=== PATIENT | male | born 1950 | race African-American/Black ===

== ENCOUNTER 2019-02-18 06:29 | Day surgery (SDC) | payer OTHER ==
--- OUTSIDE RECORDS SUMMARY | 2019-02-18 06:36 | XMS REPORT | Continuity of Care Document ---
:1950 Author Organization [facility] Roni Information [facility] Care Team Providers Name Role Phone [facility] Information Exchange Unavailable Unavailable Problems Problem Status Onset Classification Date Comments Source Date Reported PELVIC INJURY Active 08/03/19 [place] [id number] Medical Center URINARY AND Active 08/03/19 [facility] PELVIC ORGAN 15 Medical NJURY, ICD 867. Center Discharge 07/04/19 07/06/2014 [facility] Diagnosis: 15 Medical Complication of Center Borja catheter Discharge 07/04/19 07/06/2014 [facility] Diagnosis: UTI [address] [place] [address] Center Enterobacter1, 2 Active 07/04/19 Problem 09/20/2014 1urine 07/04/14 [place] [address] 2Problem added by Discern Expert. Medical Center Discharge 06/13/19 06/16/2014 [facility] Diagnosis: 15 Medical Urinary Center retention BEDDED Active 05/08/20 [facility] OUTPATIENT/SUPRA Medical PUBIC CATH EVAL Center W Discharge 05/07/20 05/10/2014 [facility] Diagnosis: 14 Medical Encounter for Center suprapubic catheter care LEAKING URINE Active 05/07/20 [facility] BAG 14 Medical Center OTHER Active 04/14/[address] FALL Active 04/14/[address] URETHRAL INJURY Active 04/14/[address] BLADDER PAIN Active 04/14/[address] EPHORIA DUE TO Active 04/20/20 [facility] INSUFFICIENT 12 [place] DRAINAGE CABG x 3 - Active 12/05/19 Problem 09/20/2014 [facility] Coronary artery 10 Medical bypass grafts x Center, 3 OPID [place] HTN Active 12/05/19 Problem 09/20/2014 [facility] [Hypertension] Medical [place], ALENA Tamayo Hyperglycemia Active 12/05/19 Problem 09/20/2014 [place] [address] Medical Center, ALENA Tam[place]o,[facility] Malnutrition Active 12/05/19 Problem 09/20/2014 [facility] NOS(Probable 10 Medical Diagnosis) Center, ALENA [place] CABG x 3 - Active 12/05/19 Problem 05/12/2012 [facility] Coronary artery 10 [place] bypass grafts x 3 HTN Active 12/05/19 Problem 05/12/2012 [facility] [Hypertension] [address] [place] [address] Malnutrition NOS Active 12/05/19 Problem 05/12/2012 [place] [address] City Anxiety Active Problem 09/20/2014 [facility], OPID [facility] [place] BPH Active Problem 09/20/2014 [facility], OPID [facility] Bypass Active Problem 09/20/2014 [facility], OPID Roni Chest pain Active Problem 09/20/2014 [facility], OPID R[place] Diabetes Resolved Problem 09/20/2014 [facility] mellitus [facility], ALENA Tamayo Epiphora due to Active Problem 09/20/2014 [facility] Medical drainage Center, OPID Roni Glaucoma Active Problem 09/20/2014 [facility], OPID Roni Hypertension Active Problem 09/20/2014 [facility], OPITrue [facility] Sleep Pain Active Problem 09/20/2014 [facility], OPITrue [place] Anxiety Active Problem 05/12/2012 [facility] Bypass Active Problem 05/12/2012 [facility] Chest pain Active Problem 05/12/2012 [facility] Epiphora due to Active Problem 05/12/2012 [facility] drainage Pain Active Problem 05/12/2012 [facility] Coronary artery Active Problem 09/20/2014 [facility] Suprapubic Active Problem 09/20/2014 [facility] urinary catheter Medical in situ Center OTHER GENERAL Active [facility] PELVIC ORGAN INJ Active [facility] [place] Medications Medication Details Route Status Patient Ordering Order Source Instructions Provider Date Pneumovax 23 0.5 mL, Route: Inactive 09/18/ [facility] IM, Drug Form: 2015 Medical INJ, Daily, Center Start date: 09/18/14 11:00:00, Duration: 1 doses or times, Stop date: 09/18/14 11:00:00Notes: (Same as: Pneumovax 23) Refrigerate Levofloxacin 500 mg=1 tab, Active 09/18/ [place] 500 MG Oral PO, Q24H, # 7 2015 Medical Tablet tab, 0 Center [Levaquin] Refill(s) tramadol 100 mg=2 tab, Active 09/18/ [place] hydrochloride PO, Q6H, PRN 2015 Medical 50 MG Oral Pain Score Center Tablet 4-6, # 45 tab, 0 Refill(s) Docusate Sodium 100 mg=1 cap, Active [place] 100 MG Oral PO, BID, # 40 2014 Medical Capsule cap, 0 [place] [Colace] Refill(s) Bisacodyl 10 mg, 1 supp, Inactive Route: [place], 2014 Medical Drug form: [place] SUPP, ONCE, Dosing Weight 109.091, kg, PRN Constipation, Priority: NOW, Start date: 09/17/14 11:20:00Notes: (Same As: Dulcolax, Bisco-Lax) Losartan 100 mg, 1 tab, No Longer Route: PO, Active 2014 Medical Drug form: [place] TAB, Daily, Dosing Weight 109.091, kg, Start date: 09/16/14 9:00:00, Duration: 30 day, Stop date: 10/15/14 9:00:00Notes: (Same as: Jeffar) Avodart 0.5 mg, 1 cap, No Longer Route: PO, Active 2014 Medical Drug form: [place] CAP, Daily, Dosing Weight 109.091, kg, Start date: 09/16/14 9:00:00, Duration: 30 day, Stop date: 10/15/14 9:00:00Notes: Non-Formulary Drug. (Same As: Avodart) (Do Not Crush) Amlodipine 10 mg, 1 tab, No Longer Route: PO, Active 2014 Medical Drug form: [place] TAB, Daily, Dosing Weight 109.091, kg, Start date: 09/16/14 9:00:00, Duration: 30 day, Stop date: 10/15/14 9:00:00Notes: (Same as: Norvasc) Docusate Sodium 100 mg, 1 cap, No Longer [place] 100 MG Oral Route: PO, Active 2014 Medical Capsule Drug form: [place] [Colace] CAP, BID, Dosing Weight 109.091, kg, Start date: 09/16/14 9:00:00, Duration: 30 day, Stop date: 10/15/14 17:00:00Notes: (Same as: Colace) (Do Not Crush) pneumococcal 0.5 mL, Route: No Longer [place] capsular IM, Drug Form: Active 2014 Medical polysaccharide INJ, Daily, [place] type 1 vaccine Start date: / pneumococcal 09/16/14 capsular 9:00:00, polysaccharide Duration: 1 type 10A doses or vaccine / times, Stop pneumococcal date: 09/16/14 capsular 9:00:00Notes: polysaccharide (Same as: type 11A Pneumovax 23) vaccine / Refrigerate pneumococcal capsular polysaccharide type 12F vaccine / pneumococcal capsular polysacchar BYSTOLIC 10 MG BYSTOLIC 10 MG No Longer [place] TABLET TABLET, 20 mg, Active 2014 Medical Drug form: [place] MISC, Route: PO, Daily, 09/16/14 9:00:00, Duration: 30 day, Stop date: 10/15/14 9:00:00 Bystolic 20 mg, 4 tab, No Longer [place] Route: PO, Active 2014 Medical Drug form: Center TAB, Daily, Dosing Weight 109.091, kg, Start date: 09/16/14 9:00:00, Duration: 30 day, Stop date: 10/15/14 9:00:00Notes: (same as: Bystolic) heparin 5,000 unit, 1 No Longer [place] mL, Route: Active 2014 Medical SUB-Q, Drug Center form: INJ, Q8H, Dosing Weight 109.091, kg, Start date: 09/16/14 8:00:00, Duration: 30 day, Stop date: 10/16/14 0:00:00Notes: porcine heparin D5W 1/2NS 1,000 1,000 mL, No Longer [place] mL Rate: 75 Active 2014 Medical ml/hr, Infuse [place] over: 13.3 hr, Route: IV, Dosing Weight 109.091 kg, Total Volume: 1,000, Start date: 09/16/14 7:37:00, Duration: 30 day, Stop date: 10/16/14 7:36:00 latanoprost 1 drp, Route: No Longer [place] 0.05 MG/ML OPTH, Bedtime, Active 2014 Medical Ophthalmic Drug form: [place] Solution SOLN, Start date: 09/15/14 21:00:00, Stop date: 10/14/14 21:00:00Notes: Keep refrigerated. (Same as:Xalatan) Crestor 10 mg, 1 tab, No Longer [place] Route: PO, Active 2014 Medical Drug form: [place] TAB, Bedtime, Dosing Weight 109.091, kg, Start date: 09/15/14 21:00:00, Stop date: 10/14/14 21:00:00Notes: (Same As: Crestor) Brimonidine 1 drp, Route: No Longer [place] tartrate 1 OPTH, Q8H, Active 2014 Medical MG/ML Drug form: [place] Ophthalmic SOLN, Start Solution date: 09/15/14 [Alphagan] 16:00:00, Stop date: 10/15/14 8:00:00Notes: (Same as: Alphagan-P) Ancef + Sodium 2 gm, Route: No Longer [place] Chloride 0.9% IVPB, Drug Active 2014 Medical IV 100 mL form: PDR/INJ, [place] ABXQ8H, Dosing Weight 109.091, kg, Start date: 09/15/14 15:00:00, Duration: 3 doses or times, Stop date: 09/16/14 12:00:00Notes: (Same As: [place] Kefzol) MEDICATION WASTE Product Size: 1000 mg Product Wasted: ___ mg Ondansetron 4 mg, 2 mL, Inactive [place] Route: IVP, 2014 Medical Drug form: [place] INJ, ONCE, Dosing Weight 109.091, kg, PRN Nausea & Vomiting, Start date: 09/15/14 14:37:00Notes: (Same as: Zofran) MEDICATION WASTE Product Size: 4 mg Product Wasted: ___ mg Naloxone 0.04 mg, 0.1 Inactive [place] mL, Route: 2014 Medical IVP, Drug Center form: INJ, Q2MIN, Dosing Weight 109.091, kg, PRN Narcotic Reversal, Start date: 09/15/14 14:37:00, Duration: 8 doses or times, Stop date: 09/16/14 0:00:00Notes: (Same as: Narcan) Hydromorphone 0.5 mg, 0.25 Inactive [place] mL, Route: 2014 Medical IVP, Drug Center form: INJ, Q5Min, Dosing Weight 109.091, kg, PRN Pain Score 7-10, Start date: 09/15/14 14:37:00, Duration: 4 doses or times, Stop date: 09/16/14 0:00:00Notes: Same as: Dilaudid Flumazenil 0.2 mg, 2 mL, Inactive [place] Route: IVP, 2014 Medical Drug form: Center INJ, PRN, Dosing Weight 109.091, kg, PRN Benzodiazepine Reversal, Initial dose, Start date: 09/15/14 14:37:00, Duration: 30 day, Stop date: 10/15/14 14:36:00Notes: (Same as: Romazicon) Morphine 2 mg, 1 mL, No Longer [place] Route: IVP, Active 2014 Medical Drug form: Center INJ, Q2H, Dosing Weight 109.091, kg, PRN Pain Score 7-10, Start date: 09/15/14 14:15:00, Duration: 30 day, Stop date: 10/15/14 14:14:00Notes: (Same as:MORPhine Sulfate) Hydralazine 10 mg, 0.5 mL, No Longer [place] Route: IVP, Active 2014 Medical Drug form: Center INJ, Q6H, Dosing Weight 109.091, kg, PRN Hypertension, Start date: 09/15/14 14:15:00, Duration: 30 day, Stop date: 10/15/14 14:14:00, SBP > 160Notes: (Same as: Apresoline) Push over 5 minutes Zofran 4 mg, 2 mL, No Longer [facility] Route: IV, Active 2014 Medical Drug form: Center INJ, Q8H, Dosing Weight 109.091, kg, PRN Nausea, Start date: 09/15/14 14:15:00, Duration: 30 day, Stop date: 10/15/14 14:14:00Notes: (Same as: Zofran) MEDICATION WASTE Product Size: 4 mg Product Wasted: _0__ mg Tylenol 650 mg, 2 tab, No Longer [place] Route: PO, Active 2014 Medical Drug form: Center TAB, Q6H, Dosing Weight 109.091, kg, PRN Pain Score 1-3, Start date: 09/15/14 14:15:00, Duration: 30 day, Stop date: 10/15/14 14:14:00Notes: Do not exceed 4 gm/day. (Same as: Tylenol) tramadol 100 mg, 2 tab, No Longer [place] hydrochloride Route: PO, Active 2014 Medical 50 MG Oral Drug form: Center Tablet TAB, Q6H, Dosing Weight 109.091, kg, PRN Pain Score 4-6, Start date: 09/15/14 14:14:00, Duration: 30 day, Stop date: 10/15/14 14:13:00Notes: Not to exceed 400mg/day. (Same As: Ultram) Insulin regular 4 unit, 0.04 No Longer [place] mL, Route: Active 2014 Medical SUB-Q, Drug Center form: SOLN, TID-Before Meals, Dosing Weight 109.091, kg, PRN Blood Glucose Results, Start date: 09/15/14 14:14:00, Duration: 30 day, Stop date: 10/15/14 14:13:00Notes: (Same as: Humulin R) Roll in palms of hands gently; Do not shake vigorously. "single patient use only" (Restricted to patients requiring a dose > 60 units) Stable for 28 days at room temperature Expires in days from Date Dextrose 50% 12.5 gm, 25 No Longer [place] Syringe mL, Route: Active 2014 Medical IVP, Drug Center Form: INJ, Dosing Weight 109.091, kg, PRN, PRN Blood Glucose Results, Start date: 09/15/14 14:14:00, Duration: 30 day, Stop date: 10/15/14 14:13:00 Glucagon 1 mg, Route: No Longer [place] IM, Drug form: Active 2014 Medical PDR/INJ, PRN, Center Dosing Weight 109.091, kg, PRN Blood Glucose Results, Start date: 09/15/14 14:14:00, Duration: 30 day, Stop date: 10/15/14 14:13:00 D5NS 1,000 mL 1,000 mL, No Longer [place] Rate: 100 Active 2014 Medical ml/hr, Infuse Center over: 10 hr, Route: IV, Dosing Weight 109.091 kg, Total Volume: 1,000, Start date: 09/15/14 14:11:00, Duration: 30 day, Stop date: 10/15/14 14:10:00 Gentamicin 480 mg, 12 mL, Inactive [place] Sulfate (SHELTER) Route: IVPB, 2014 Medical 10 MG/ML ONCE, Dosing Center Injectable Weight Solution 109.091, kg, Start date: 09/15/14 11:51:00, Stop date: 09/15/14 11:51:00, (adjust the dose for patients with renal insufficiency) Special Instructions: (adjust the dose for patients with renal insufficiency) Notes: (Same as Garamycin) ceFAZolin 2 gm, 50 mL, Inactive [place] Route: IVPB, 2014 Medical Drug form: Center INJ, PRE OP, Start date: 09/15/14 0:00:00, Duration: 1 doses or times, Stop date: 09/16/14 0:00:00 latanoprost 1 drp, OPTH, On Hold [place] 0.05 MG/ML Bedtime, both 2014 Medical Ophthalmic eyes, # 3 ml, Center Solution 0 Refill(s)Speci al Instructions: both eyes Brimonidine 1 drp, OPTH, On Hold [place] tartrate 1 Q8H, left ey, 2014 Medical MG/ML # 10 ml, 0 Center Ophthalmic Refill(s)Speci Solution al [Alphagan] Instructions: left ey Levofloxacin 500 mg=1 tab, Active [place] 500 MG Oral PO, Q24H, # 14 2015 Medical Tablet tab, 0 Center [Levaquin] Refill(s) Acetaminophen 1 tab, Route: Inactive [place] 325 MG / PO, Drug Form: 2014 Medical Hydrocodone TAB, Dosing Center Bitartrate 10 Weight 110, MG Oral Tablet kg, ONCE, [[place] 10/325] STAT, Start date: 07/04/14 7:54:00, Stop date: 07/04/14 7:54:00 Dilaudid 0.5 mg, Route: Inactive [facility] IVP, ONCE, 2014 Medical Dosing Weight Center 110, kg, Priority: STAT, Start date: 07/04/14 7:07:00, Stop date: 07/04/14 7:07:00 Zofran 4 mg, Route: Inactive [facility] IVP, Drug 2014 Medical form: INJ, Center ONCE, Dosing Weight 110, kg, Priority: STAT, Start date: 06/13/14 19:57:00, Stop date: 06/13/14 19:57:00 Morphine 4 mg, Route: Inactive [facility] IVP, Drug 2014 Medical form: INJ, Center ONCE, Dosing Weight 110, kg, Priority: STAT, Start date: 06/13/14 19:57:00, Stop date: 06/13/14 19:57:00 Acetaminophen 1 tab, Route: Inactive [place] 325 MG / PO, Drug Form: 2014 Medical Hydrocodone TAB, Dosing Center Bitartrate 10 Weight 110, MG Oral Tablet kg, ONCE, [[place] 10/325] STAT, Start date: 05/07/14 20:54:00, Stop date: 05/07/14 20:54:00 Docusate Sodium 100 mg=1 cap, Active [place] 100 MG Oral PO, BID, 2013 Medical Capsule Constipation, Center [Colace] # 20 cap, 0 Refill(s) Acetaminophen 1 tab, PO, Active [place] 300 MG / Q4H, Pain 2014 Medical Codeine Score 4-6, # Center Phosphate 30 MG 30 tab, 0 Oral Tablet Refill(s) hyoscyamine 0.125 mg=1 Active [place] 0.125 mg tab, SL, Q4H, 2014 Medical sublingual Bladder Spasm, Center tablet # 30 tab, 0 Refill(s) Crestor 10 mg, 1 tab, No Longer [place] Route: PO, Active 2013 Medical Drug form: Center TAB, Bedtime, Dosing Weight 116.364, kg, Start date: 04/15/14 21:00:00, Duration: 30 day, Stop date: 05/14/14 21:00:00Notes: (Same As: Crestor) Ubiquinone 100 mg, PO, Active [place] TID, 0 2013 Medical Refill(s) Center Metformin 500 mg, PO, Active [place] BID, 0 2013 Medical Refill(s) Center aspirin 81 mg, PO, Active [place] Daily, 0 2013 Medical Refill(s) Center nebivolol 20 MG 20 mg=1 tab, Active [facility] Oral Tablet PO, Daily, 0 2013 Medical [Bystolic] Refill(s) Center Rosuvastatin 10 mg=1 tab, No Longer [facility] calcium 10 MG PO, Daily, 0 Active 2013 Medical Oral Tablet Refill(s) Center [Crestor] Amlodipine 5 mg, PO, Active [place] Daily, 0 2013 Medical Refill(s) Center glimepiride 1 mg, PO, Active [facility] Daily, 0 2013 Medical Refill(s) Center Flomax 0.4 mg, 1 cap, No Longer [facility] Route: PO, Active 2013 Medical Drug form: [place] CAP, Daily, Dosing Weight 116.364, kg, Start date: 04/15/14 9:00:00, Duration: 30 day, Stop date: 05/14/14 9:00:00Notes: (Same As: Flomax) "Do Not Crush" Bystolic 5 mg, 1 tab, No Longer [facility] Route: PO, Active 2013 Medical Drug form: [place] TAB, Daily, Dosing Weight 116.364, kg, Start date: 04/15/14 9:00:00, Duration: 30 day, Stop date: 05/14/14 9:00:00Notes: (same as: Bystolic) Apriso 1.5 gm, 3 cap, No Longer [facility] Route: PO, Active 2013 Medical Drug form: [place] ERCAP, QAM, Dosing Weight 116.364, kg, Start date: 04/15/14 9:00:00, Duration: 30 day, Stop date: 05/14/14 9:00:00 Losartan 100 mg, 2 tab, No Longer [facility] Route: PO, Active 2013 Medical Drug form: [place] TAB, Daily, Dosing Weight 116.364, kg, Start date: 04/15/14 9:00:00, Duration: 30 day, Stop date: 05/14/14 9:00:00Notes: (Same as: Cozaar) Avodart 0.5 mg, 1 cap, No Longer [place] Route: PO, Active 2013 Medical Drug form: [place] CAP, Daily, Dosing Weight 116.364, kg, Start date: 04/15/14 9:00:00, Duration: 30 day, Stop date: 05/14/14 9:00:00Notes: Non-Formulary Drug. (Same As: Avodart) (Do Not Crush) Famotidine 20 mg, 1 tab, No Longer [place] Route: PO, Active 2013 Medical Drug form: [place] TAB, Q12H, Dosing Weight 116.364, kg, Start date: 04/15/14 9:00:00, Duration: 30 day, Stop date: 05/14/14 21:00:00Notes: (Same as: Pepcid) Sodium Chloride 1,000 mL, Inactive [place] 0.154 MEQ/ML 1,000 ml/hr, 2013 Medical Injectable Infuse Over: 1 Center Solution hr, Route: IV, 1,000, Drug form: INJ, ONCE, Priority: STAT, Dosing Weight 116.364 kg, Start date: 04/15/14 8:19:00, Duration: 1 doses or times, Stop date: 04/15/14 8:19:00 Lovenox 40 mg, 0.4 mL, No Longer [place] Route: SUB-Q, Active 2013 Medical Drug form: [place] INJ, Daily, Dosing Weight 116.364, kg, Priority: STAT, Start date: 04/14/14 22:01:00, Duration: 30 day, Stop date: 05/14/14 9:00:00Notes: (Same as: Lovenox) Levsin 0.125 mg, 1 No Longer [place] tab, Route: Active 2013 Medical SL, Drug form: Center TAB, Q4H, Dosing Weight 116.364, kg, PRN Bladder Spasm, Start date: 04/14/14 22:00:00, Duration: 30 day, Stop date: 05/14/14 21:59:00Notes: (Same as: Levsin) Take 30 min before meal Cipro 400 mg, 200 No Longer [place] mL, Route: Active 2013 [facility] IVPB, Drug Center form: INJ, ONCE, Dosing Weight 116.364, kg, Priority: STAT, Start date: 04/14/14 22:00:00, Stop date: 04/14/14 22:00:00Notes: Do not refrigerate Insulin, 2 unit, 0.02 No Longer [place] Regular, Pork mL, Route: Active 2013 [facility] SUB-Q, Drug Center form: SOLN, TID-Before Meals, Dosing Weight 116.364, kg, PRN Blood Glucose Results, Start date: 04/14/14 21:59:00, Duration: 30 day, Stop date: 05/14/14 21:58:00Notes: (Same as: Humulin R) Roll in palms of hands gently; Do not shake vigorously. "single patient use only" (Restricted to patients requiring a dose > 60 units) Stable for 28 days at room temperature Expires in days from Date Dextrose 50% 12.5 gm, 25 No Longer [place] Syringe mL, Route: Active 2013 [facility] IVP, Drug Center Form: INJ, Dosing Weight 116.364, kg, PRN, PRN Blood Glucose Results, Start date: 04/14/14 21:59:00, Duration: 30 day, Stop date: 05/14/14 21:58:00 Glucagon 1 mg, Route: No Longer [place] IM, Drug form: Active 2013 Medical PDR/INJ, PRN, Center Dosing Weight 116.364, kg, PRN Blood Glucose Results, Start date: 04/14/14 21:59:00, Duration: 30 day, Stop date: 05/14/14 21:58:00 Calcium 1,000 mL, No Longer [place] Chloride 0.0014 Rate: 100 Active 2013 Medical MEQ/ML / ml/hr, Infuse Center Potassium over: 10 hr, Chloride 0.004 Route: IV, MEQ/ML / Sodium Dosing Weight Chloride 0.103 116.364 kg, MEQ/ML / Sodium Total Volume: Lactate 0.028 1,000, Start MEQ/ML date: 04/14/14 Injectable 21:59:00, Solution Duration: 30 day, Stop date: 05/14/14 21:58:00 acetaminophen-c 1 tab, Route: No Longer [facility] odeine #3 PO, Drug Form: Active 2013 Medical TAB, Dosing Center Weight 116.364, kg, Q4H, PRN Pain Score 4-6, Start date: 04/14/14 21:59:00, Duration: 30 day, Stop date: 05/14/14 21:58:00Notes: Do not exceed 4gm/day of acetaminophen. (Same as: Tylenol with Codeine # 3) Hydromorphone 0.3 mg, 0.15 No Longer [facility] mL, Route: Active 2013 Medical IVP, Drug Center form: INJ, Q3H, Dosing Weight 116.364, kg, PRN Pain Score 4-6, Start date: 04/14/14 21:59:00, Duration: 30 day, Stop date: 05/14/14 21:58:00Notes: Same as: Dilaudid Lidocaine 1 inj, Route: Inactive [facility] SUB-Q, ONCE, 2013 Medical Dosing Weight Center 116.364, kg, Priority: STAT, Start date: 04/14/14 20:50:00, Stop date: 04/14/14 20:50:00 Dilaudid 1 mg, 0.5 mL, Inactive [facility] Route: IVP, 2013 Medical Drug form: Center INJ, ONCE, Dosing Weight 116.364, kg, Priority: STAT, Start date: 04/14/14 20:50:00, Stop date: 04/14/14 20:50:00Notes: Same as: Dilaudid Morphine 4 mg, Route: Inactive [facility] IVP, Drug 2013 Medical form: INJ, Center ONCE, Dosing Weight 116.364, kg, Priority: STAT, Start date: 04/14/14 19:00:00, Stop date: 04/14/14 19:00:00 Saline Flush 10 mL, Route: No Longer [facility] 0.9% IVP, Drug Active 2013 Medical Form: INJ, Center Dosing Weight 116.364, kg, PRN, PRN Line Flush, Start date: 04/14/14 18:49:00, Duration: 30 day, Stop date: 05/14/14 18:48:00Notes: (Same as: BD Posiflush) cefazolin 2 gm, Route: IVPB No Longer [place] IVPB, ONCE, [address] Weight [facility] 115.909, kg, Start date: 05/10/12 11:08:00, Duration: 1 doses or times, Stop date: 05/10/12 11:08:00 flumazenil 0.2 mg, 2 mL, IVP No Longer [place] Route: IVP, [address] Drug form: [facility] INJ, PRN, Dosing Weight 115.909, kg, PRN Benzodiazepine Reversal, Initial dose, Start date: 05/10/12 10:58:00, Duration: 30 day, Stop date: 06/09/12 10:57:00 naloxone 0.04 mg, 0.1 IVP No Longer [place] 05/10[facility] mL, Route: [address] IVP, Drug [facility] form: INJ, Q2MIN, Dosing Weight 115.909, kg, PRN Narcotic Reversal, Start date: 05/10/12 10:58:00, Duration: 8 doses or times, Stop date: Limited # of times ondansetron 4 mg, 2 mL, IVP No Longer [place] Route: IVP, [address] Drug form: [facility] INJ, ONCE, Dosing Weight 115.909, kg, PRN Nausea & Vomiting, Start date: 05/10/12 10:58:00 promethazine + 6.25 mg, 0.25 IVPB No Longer [place] Sodium Chloride mL, Route: [address] 0.9% IV 50 mL IVPB, ONCE, [facility] Dosing Weight 115.909, kg, PRN Nausea & Vomiting, Start date: 05/10/12 10:58:00 enalapril 0.625 mg, 0.5 IVP No Longer [place] 05/10[facility] mL, Route: [address] IVP, Drug [facility] form: INJ, Q5Min, Dosing Weight 115.909, kg, PRN Elevated BP, Start date: 05/10/12 10:58:00, Duration: 4 doses or times, Stop date: Limited # of times meperidine 12.5 mg, 0.25 IVP No Longer [place] mL, Route: Active 2011 [facility] IVP, Drug [facility] form: INJ, Q30Min, Dosing Weight 115.909, kg, PRN Other -See Comment, For shivering, Start date: 05/10/12 10:58:00, Duration: 2 doses or times, Stop date: Limited # of times hydromorphone 0.5 mg, 0.25 IVP No Longer [place] mL, Route: Active 2011 [facility] IVP, Drug [facility] form: INJ, Q15Min, Dosing Weight 115.909, kg, PRN Other -See Comment, Start date: 05/10/12 10:58:00, Duration: 5 doses or times, Stop date: Limited # of times, pain score 4-10 morphine 2 mg, 1 mL, IVP No Longer [place] Sulfate Route: IVP, [facility] 2011 [facility] Drug form: [place] INJ, Q5Min, Dosing Weight 115.909, kg, PRN Other -See Comment, Start date: 05/10/12 10:58:00, Duration: 5 doses or times, Stop date: Limited # of times, pain score 4-10 albuterol 4.98 mg, 6 mL, NEB No Longer [place] 0.083% Route: NEB, Active 2011 [facility] inhalation Drug form: [facility] solution SOLN, RQ8H, Dosing Weight 115.909, kg, PRN Wheezing, Start date: 05/10/12 10:58:00, Duration: 30 day, Stop date: 06/09/12 10:57:00 lidocaine 1% 0.5 mL, Route: INTRADERM No Longer [facility] INTRADERM, [address] Drug Form: [place] INJ, Dosing Weight 115.909, kg, ONCALL, Start date: 05/10/12 10:00:00, Duration: 1 doses or times Apriso 0.375 g 1.5 gm, 4 cap, PO [facility] oral capsule, PO, QAM, 120 2011 [facility] extended cap, City release Substitution Allowed, ERCAP losartan 100 mg 100 mg, 1 tab, PO [facility] oral tablet PO, Daily, 30 2011 [facility] tab, City Substitution Allowed, TAB Lactated 1,000 mL, IV No Longer [facility] Ringers Rate: 25 Active 2011 [facility] Injection IV ml/hr, Infuse [place] 1,000 mL over: 40 hr, Route: IV, kg, Total Volume: 1,000, Start date: 05/10/12 9:14:00, Duration: 30 day, Stop date: 06/09/12 9:13:00 BLUE PILLS BLUE PILLS, 4 PO No Longer tabs, PO, Active 2011 [facility] Daily, City Substitution Allowed BLOOD PRESSURE BLOOD PRESSURE PO No Longer PILL PILL, 1 tab, Active 2011 [facility] PO, Daily, City Substitution Allowed Flomax 0.4 mg 0.4 mg, 1 cap, PO Active oral capsule PO, Daily, 2011 [facility] cap, City Substitution Allowed, CAP Avodart 0.5 mg 0.5 mg, 1 cap, PO Active oral capsule PO, Daily, 2011 [facility] cap, City Substitution Allowed, CAP aspirin 325 mg 325 mg, 1 tab, PO No Longer tablet PO, Daily, Active 2011 [facility] City Allowed Crestor 10 mg 10 mg, 1 tab, PO Active oral tablet PO, Daily, 2011 [facility] tab, City Substitution Allowed, TAB Bystolic 5 mg 5 mg, 1 tab, PO Active oral tablet PO, Daily, 2011 [facility] tab, City Substitution Allowed, TAB Allergies, Adverse Reactions, Alerts No Known Medication Allergies Immunizations Immunization Date Site Status Last Updated Comments Source Given pneumococcal Right completed [facility] 23-valent vaccine [address] [place] [address] pneumococcal Not Given Toño [facility] 23-valent vaccine [address] [place] [address] Results Order Name Results Value Reference Date Interpretation Comments Source Range HEMATOLOGY Monocytes # 0.8 0.0 - 0.8 09/18 [facility] HEMATOLOGY Eosinophils # 0.2 0.0 - 0.5 09/18 [facility] HEMATOLOGY Microcyte 2+ None Seen 09/18 [facility] *ABN* /2014 [facility] (09/18/14 3:50 AM) [place] HEMATOLOGY Segs 51.7 45.0 - 09/18 [facility] 75.0 [facility] HEMATOLOGY Lymphocytes 31.6 20.0 - 09/18 [place] 40.0 [facility] HEMATOLOGY Eosinophils 3.5 0.0 - 4.0 09/18 [facility] HEMATOLOGY Monocytes 12.4 2.0 - 12.0 09/18 2014 [facility] HEMATOLOGY Lymphocytes # 2.0 1.0 - 5.5 09/18 [facility] HEMATOLOGY Basophils 0.8 0.0 - 1.0 09/18 [facility] HEMATOLOGY Segs-Bands # 3.3 1.5 - 8.1 09/18 [facility] HEMATOLOGY Hct 36.1 42.0 - 09/18 [place] 54.0 /2014 [facility] HEMATOLOGY RBC 5.00 4.70 - 09/18 [place] 6.10 /2014 [facility] HEMATOLOGY Hgb 12.1 14.0 - 09/18 18.0 [facility] HEMATOLOGY WBC 6.4 3.7 - 10.4 09/18 [facility] HEMATOLOGY RDW 14.7 11.5 - 09/18 14.5 [facility] HEMATOLOGY Platelet 163 133 - 450 09/18 [facility] HEMATOLOGY MPV 10.1 7.4 - 10.4 09/18 [facility] HEMATOLOGY MCHC 33.6 32.0 - 09/18 [place] 36.0 [facility] HEMATOLOGY MCV 72.3 80.0 - 09/18 [place] 94.0 [facility] HEMATOLOGY MCH 24.3 27.0 - 09/18 [place] 31.0 [facility] HEMATOLOGY PTT 31.7 22.9 - 09/18 <sup>7</sup>I 35.8 nterpretive Medical Data: [facility] Therapeutic Range: 57 - 92 [place] ELECTROLYTES AGAP 13.1 10.0 - 09/17 [place] 20.0 [facility] ELECTROLYTES eGFR 80 09/17 <sup>1</sup>R esult Medical Comment: The Center eGFR is calculated using the CKD-EPI formula. In most young, healthy individuals the eGFR will be >90 mL/min/1.73m2 . The eGFR declines with age. An eGFR of 60-89 may be normal in some populations, particularly the elderly, for whom the CKD-EPI formula has not been extensively validated. Use of the eGFR is not recommended in the following populations:& lt;br/>
I ndividuals with unstable creatinine concentration s, including patients and those with serious co-morbid conditions.<b r/>
Patie nts with extremes in muscle mass or diet.

The data above are obtained from the National Kidney Disease Education Program (NKDEP) which additionally recommends that when the eGFR is used in patients with extremes of body mass index for purposes of drug dosing, the eGFR should be multiplied by the estimated BMI. ELECTROLYTES Sodium Lvl 138 135 - 145 09/17 [facility]2014 [facility] ELECTROLYTES BUN 13 7 - 22 09/17 [facility]2014 [facility] ELECTROLYTES Glucose Lvl 148 70 - 99 09/17 <sup>4</sup>I [facility] nterpretive Medical Data: Adult Center reference range values reflect the clinical guidelines
of the [employer]. ELECTROLYTES Creatinine 1.0 0.5 - 1.4 09/17 [facility] [address] [place] [address] ELECTROLYTES Chloride Lvl 105 95 - 109 09/[address] ELECTROLYTES Calcium Lvl 8.9 8.5 - 10.5 09/[address] ELECTROLYTES CO2 24 24 - 32 09/[address] ELECTROLYTES Potassium Lvl 4.1 3.5 - 5.1 09/[address] HEMATOLOGY Eosinophils 3.2 0.0 - 4.0 09/[address] HEMATOLOGY Basophils 1.1 0.0 - 1.0 09/[address] HEMATOLOGY Segs-Bands # 3.7 1.5 - 8.1 09/[address] HEMATOLOGY Lymphocytes # 1.8 1.0 - 5.5 09/17 [facility]2014 [facility] HEMATOLOGY Monocytes # 0.9 0.0 - 0.8 09/[address] HEMATOLOGY Eosinophils # 0.2 0.0 - 0.5 09/[address] HEMATOLOGY Basophils # 0.1 0.0 - 0.2 09/[address] HEMATOLOGY Microcyte 2+ None Seen 09/17 [facility] *ABN* /2014 [facility] (09/17/14 5:54 AM) [place] HEMATOLOGY Monocytes 13.0 2.0 - 12.0 09/[address] HEMATOLOGY Segs 55.8 45.0 - 09/17 [place] 75.0 /2014 [facility] HEMATOLOGY Lymphocytes 26.9 20.0 - 09/17 [place] 40.0 /2014 [facility] HEMATOLOGY Hct 35.3 42.0 - 09/17 [place] 54.0 [facility] HEMATOLOGY MCV 72.9 80.0 - 09/17 94.0 [facility] HEMATOLOGY Hgb 11.8 14.0 - 09/17 [place] 18.0 [facility] HEMATOLOGY WBC 6.6 3.7 - 10.4 09/17 [facility] HEMATOLOGY RBC 4.85 4.70 - 09/17 [place] 6.10 [facility] HEMATOLOGY Platelet 159 133 - 450 09/17 [facility] HEMATOLOGY MPV 9.5 7.4 - 10.4 09/17 [facility] HEMATOLOGY RDW 15.0 11.5 - 09/17 14.5 /2014 [facility] HEMATOLOGY MCH 24.4 27.0 - 09/17 [place] 31.0 /2014 [facility] HEMATOLOGY MCHC 33.5 32.0 - 09/17 [place] 36.0 [facility] CHEM PANEL eGFR 64 09/16 <sup>2</sup>R [facility] Medical Comment: The Center eGFR is calculated using the CKD-EPI formula. In most young, healthy individuals the eGFR will be >90 mL/min/1.73m2 . The eGFR declines with age. An eGFR of 60-89 may be normal in some populations, particularly the elderly, for whom the CKD-EPI formula has not been extensively validated. Use of the eGFR is not recommended in the following populations:& lt;br/>
I ndividuals with unstable creatinine concentration s, including patients and those with serious co-morbid conditions.<b r/>
Patie nts with extremes in muscle mass or diet.

The data above are obtained from the National Kidney Disease Education Program (NKDEP) which additionally recommends that when the eGFR is used in patients with extremes of body mass index for purposes of drug dosing, the eGFR should be multiplied by the estimated BMI. CHEM PANEL Sodium Lvl 138 135 - 145 09/16 [facility] CHEM PANEL Potassium Lvl 4.0 3.5 - 5.1 09/16 [facility] CHEM PANEL Calcium Lvl 8.6 8.5 - 10.5 09/16 [facility] CHEM PANEL Chloride Lvl 105 95 - 109 09/16 [facility] CHEM PANEL CO2 23 24 - 32 09/16 [facility] CHEM PANEL Glucose Lvl 151 70 - 99 09/16 <sup>5</sup>I nterpretive Medical Data: Adult Center reference range values reflect the clinical guidelines
of the [employer]. CHEM PANEL Creatinine 1.2 0.5 - 1.4 09/16 [facility] Lvl /2014 [facility] CHEM PANEL BUN 16 7 - 22 09/16 [facility] CHEM PANEL AGAP 14.0 10.0 - 09/16 20.0 [facility] HEMATOLOGY WBC 9.0 3.7 - 10.4 09/16 [facility] HEMATOLOGY RBC 4.89 4.70 - 09/16 [place] 6.10 [facility] HEMATOLOGY MCHC 34.0 32.0 - 09/16 36.0 [facility] HEMATOLOGY Hct 35.4 42.0 - 09/16 54.0 [facility] HEMATOLOGY Hgb 12.1 14.0 - 09/16 18.0 [facility] HEMATOLOGY MCH 24.7 27.0 - 09/16 31.0 [facility] HEMATOLOGY MCV 72.5 80.0 - 09/16 94.0 /2014 [facility] HEMATOLOGY Platelet 165 133 - 450 09/16 [facility] HEMATOLOGY RDW 14.8 11.5 - 09/16 14.5 [facility] HEMATOLOGY MPV 9.9 7.4 - 10.4 09/16 [facility] HEMATOLOGY Segs 71.8 45.0 - 09/16 [place] 75.0 /2014 [facility] HEMATOLOGY Eosinophils 1.3 0.0 - 4.0 09/16 [facility] HEMATOLOGY Lymphocytes 19.0 20.0 - 09/16 40.0 [facility] HEMATOLOGY Monocytes 7.6 2.0 - 12.0 09/16 [facility] HEMATOLOGY Microcyte 2+ None Seen 09/16 [facility] *ABN* /2014 Medical (09/16/14 3:27 AM) Center HEMATOLOGY Eosinophils # 0.1 0.0 - 0.5 09/16 [facility] HEMATOLOGY Basophils 0.3 0.0 - 1.0 09/16 2014 [facility] HEMATOLOGY Segs-Bands # 6.4 1.5 - 8.1 09/16 [facility] HEMATOLOGY Lymphocytes # 1.7 1.0 - 5.5 09/16 2014 [facility] HEMATOLOGY Monocytes # 0.7 0.0 - 0.8 09/16 2014 [facility] CHEM PANEL eGFR 53 09/15 <sup>3</sup>R esult Medical Comment: The Center eGFR is calculated using the CKD-EPI formula. In most young, healthy individuals the eGFR will be >90 mL/min/1.73m2 . The eGFR declines with age. An eGFR of 60-89 may be normal in some populations, particularly the elderly, for whom the CKD-EPI formula has not been extensively validated. Use of the eGFR is not recommended in the following populations:& lt;br/>
I ndividuals with unstable creatinine concentration s, including patients and those with serious co-morbid conditions.<b r/>
Patie nts with extremes in muscle mass or diet.

The data above are obtained from the National Kidney Disease Education Program (NKDEP) which additionally recommends that when the eGFR is used in patients with extremes of body mass index for purposes of drug dosing, the eGFR should be multiplied by the estimated BMI. CHEM PANEL Creatinine 1.4 0.5 - 1.4 09/15 [facility] CHEM PANEL Sodium Lvl 138 135 - 145 09/15 2014 [facility] CHEM PANEL Potassium Lvl 4.4 3.5 - 5.1 09/15 [facility]2014 [facility] CHEM PANEL Glucose Lvl 134 70 - 99 09/15 <sup>6</sup>I nterpretive Medical Data: Adult Center reference range values reflect the clinical guidelines
of the [employer]. CHEM PANEL BUN 17 7 - 22 09/15 [facility] CHEM PANEL CO2 24 24 - 32 09/15 2014 [facility] CHEM PANEL Chloride Lvl 105 95 - 109 09/15 2014 [facility] CHEM PANEL Calcium Lvl 9.0 8.5 - 10.5 09/15 [facility] CHEM PANEL AGAP 13.4 10.0 - 09/15 [facility] 20.0 [facility] HEMATOLOGY Basophils # 0.1 0.0 - 0.2 09/15 [facility] HEMATOLOGY Basophils # 0.1 0.0 - 0.2 09/15 [facility] ELECTROLYTES Chloride Lvl 98 95 - 109 07/04 [facility]2014 [facility] ELECTROLYTES CO2 24 24 - 32 07/04 2014 [facility] ELECTROLYTES Potassium Lvl 4.6 3.5 - 5.1 07/04 [facility] ELECTROLYTES Creatinine 1.2 0.5 - 1.4 07/04 [facility] ELECTROLYTES Sodium Lvl 135 135 - 145 07/04 [facility] ELECTROLYTES eGFR 75 07/04 <sup>1</sup>R esult Medical Comment: The Center eGFR is calculated using the CKD-EPI formula. In most young, healthy individuals the eGFR will be >90 mL/min/1.73m2 . The eGFR declines with age. An eGFR of 60-89 may be normal in some populations, particularly the elderly, for whom the CKD-EPI formula has not been extensively validated. Use of the eGFR is not recommended in the following populations:& lt;br/>
I ndividuals with unstable creatinine concentration s, including patients and those with serious co-morbid conditions.<b r/>
Patie nts with extremes in muscle mass or diet.

The data above are obtained from the National Kidney Disease Education Program (NKDEP) which additionally recommends that when the eGFR is used in patients with extremes of body mass index for purposes of drug dosing, the eGFR should be multiplied by the estimated BMI. ELECTROLYTES AGAP 17.6 10.0 - 07/04 [facility] . [facility] ELECTROLYTES Calcium Lvl 10.2 8.5 - 10.5 07/04 [facility]2014 [facility] ELECTROLYTES BUN 16 7 - 22 07/04 [facility] ELECTROLYTES Glucose Lvl 217 70 - 99 07/04 <sup>2</sup>I nterpretive Medical Data: Adult Center reference range values reflect the clinical guidelines
of the [employer]. URINE AND UA WBC 11-20 None Seen 07/04 [facility] [place] STOOL /HPF /HPF /2014 [facility] URINE AND UA Bacteria Moderate None Seen 07/04 [facility] STOOL /HPF /HPF /2014 [facility] URINE AND UA RBC 3-5 /HPF 0 - 2 07/04 [facility] /2014 [facility] URINE AND UA Sq Epi None Seen Few 07/04 [facility] (07/04/14 7:03 AM) /2014 [facility] URINE AND UA Amorph Few /HPF None Seen 07/04 [facility] Zoraida /HPF /2014 [facility] URINE AND UA Mucus Few /LPF None Seen 07/04 [facility] /LPF /2014 [facility] URINE AND UA Bili Negative Negative 07/04 [facility] *NA* /2014 [facility] (07/04/14 7:03 AM) [place] URINE AND UA Blood Trace Negative 07/04 [facility] *ABN* [facility] (07/04/14 7:03 AM) [place] URINE AND UA Nitrite Positive Negative 07/04 [facility] *ABN* /2014 [facility] (07/04/14 7:03 AM) [place] URINE AND UA 0.2 0.1 - 1.0 07/04 [facility] Urobilinogen /2014 [facility] URINE AND UA Leuk Est Moderate Negative 07/04 [facility] *ABN* /2014 [facility] (07/04/14 7:03 AM) [place] URINE AND UA Spec Grav 1.015 <=1.030 07/04 [facility] /2014 [facility] URINE AND UA pH 8.0 5.0 - 8.0 07/04 [facility] /2014 [facility] URINE AND UA Glucose Negative Negative 07/04 [facility] (07/04/14 7:03 AM) /2014 [facility] URINE AND UA Protein Trace Negative 07/04 [facility] *ABN* [facility] (07/04/14 7:03 AM) [place] URINE AND UA Ketones Negative Negative 07/04 [facility] *NA* /2014 [facility] (07/04/14 7:03 AM) [place] URINE AND UA Color Yellow Yellow 07/04 [facility] *NA* [facility] (07/04/14 7:03 AM) [place] URINE AND UA Turbidity Slight Cloudy Clear 07/04 [facility] (07/04/14 7:03 AM) /2014 [facility] CHEM PANEL eGFR 68 06/14 <sup>1</sup>R esult Medical Comment: The Center eGFR is calculated using the CKD-EPI formula. In most young, healthy individuals the eGFR will be >90 mL/min/1.73m2 . The eGFR declines with age. An eGFR of 60-89 may be normal in some populations, particularly the elderly, for whom the CKD-EPI formula has not been extensively validated. Use of the eGFR is not recommended in the following populations:& lt;br/>
I ndividuals with unstable creatinine concentration s, including patients and those with serious co-morbid conditions.<b r/>
Patie nts with extremes in muscle mass or diet.

The data above are obtained from the National Kidney Disease Education Program (NKDEP) which additionally recommends that when the eGFR is used in patients with extremes of body mass index for purposes of drug dosing, the eGFR should be multiplied by the estimated BMI. CHEM PANEL Sodium Lvl 134 135 - 145 06/[address] CHEM PANEL CO2 24 24 - 32 06/[address] CHEM PANEL Calcium Lvl 9.7 8.5 - 10.5 06/[address] CHEM PANEL Potassium Lvl 3.6 3.5 - 5.1 06/[address] CHEM PANEL Chloride Lvl 98 95 - 109 06/[address] CHEM PANEL Glucose Lvl 181 70 - 99 06/14 <sup>2</sup>I nterpretive Medical Data: Adult Center reference range values reflect the clinical guidelines
of the [employer]. CHEM PANEL BUN 19 7 - 22 06/14 [facility]2014 [facility] CHEM PANEL Creatinine 1.3 0.5 - 1.4 06/14 [facility] CHEM PANEL AGAP 15.6 10.0 - 06/14 [facility] 20.0 [facility] HEMATOLOGY Eosinophils 0.9 0.0 - 4.0 06/14 [facility]2014 [facility] HEMATOLOGY Basophils 0.4 0.0 - 1.0 06/[address] HEMATOLOGY Segs-Bands # 6.6 1.5 - 8.1 06/[address] HEMATOLOGY Monocytes 10.3 2.0 - 12.0 06/14 [facility]2014 [facility] HEMATOLOGY Lymphocytes 20.1 20.0 - 06/14 [place] 40.0 /2014 [facility] HEMATOLOGY Lymphocytes # 1.9 1.0 - 5.5 06/14 [facility] HEMATOLOGY Plt Morph Normal 06/14 (06/13/14 8:20 PM) /2014 [facility] HEMATOLOGY Segs 68.3 45.0 - 06/14 [place] 75.0 /2014 [facility] HEMATOLOGY Eosinophils # 0.1 0.0 - 0.5 06/14 [facility] HEMATOLOGY Monocytes # 1.0 0.0 - 0.8 06/14 [facility] HEMATOLOGY Microcyte 2+ None Seen 06/14 [facility] *ABN* /2014 [facility] (06/13/14 8:20 PM) [place] HEMATOLOGY Basophils # 0.0 0.0 - 0.2 06/14 [facility] HEMATOLOGY RBC 5.95 4.70 - 06/14 [place] 6.10 [facility] HEMATOLOGY WBC 9.6 3.7 - 10.4 06/14 [facility] HEMATOLOGY Hgb 14.4 14.0 - 06/14 [place] 18.0 [facility] HEMATOLOGY MPV 9.7 7.4 - 10.4 06/14 [facility] HEMATOLOGY Platelet 235 133 - 450 06/14 [facility] HEMATOLOGY MCHC 32.5 32.0 - 06/14 [place] 36.0 [facility] HEMATOLOGY RDW 13.6 11.5 - 06/14 14.5 [facility] HEMATOLOGY MCH 24.2 27.0 - 06/14 [place] 31.0 [facility] HEMATOLOGY Hct 44.2 42.0 - 06/14 [place] 54.0 [facility] HEMATOLOGY MCV 74.4 80.0 - 06/14 [place] 94.0 [facility] IMMUNOLOGY [place]-Hep C Negative Negative 06/14 [facility] Ab *NA* /2014 [facility] (06/13/14 8:00 PM) [place] IMMUNOLOGY CDC HIV 4th Negative Negative 06/14 [facility] GEN (06/13/14 8:00 PM) /2014 [facility] CHEM PANEL eGFR 72 04/16 <sup>1</sup>R esult Medical Comment: The Center eGFR is calculated using the CKD-EPI formula. In most young, healthy individuals the eGFR will be >90 mL/min/1.73m2 . The eGFR declines with age. An eGFR of 60-89 may be normal in some populations, particularly the elderly, for whom the CKD-EPI formula has not been extensively validated. Use of the eGFR is not recommended in the following populations:& lt;br/>
I ndividuals with unstable creatinine concentration s, including patients and those with serious co-morbid conditions.<b r/>
Patie nts with extremes in muscle mass or diet.

The data above are obtained from the National Kidney Disease Education Program (NKDEP) which additionally recommends that when the eGFR is used in patients with extremes of body mass index for purposes of drug dosing, the eGFR should be multiplied by the estimated BMI. CHEM PANEL AGAP 11.3 10.0 - 04/16 [facility] 20.0 [facility] CHEM PANEL CO2 27 24 - 32 04/16 [facility] CHEM PANEL Calcium Lvl 8.6 8.5 - 10.5 04/16 [facility] CHEM PANEL Potassium Lvl 4.3 3.5 - 5.1 04/16 [facility] CHEM PANEL Sodium Lvl 139 135 - 145 04/16 [facility] CHEM PANEL Chloride Lvl 105 95 - 109 04/16 [facility] CHEM PANEL BUN 15 7 - 22 04/16 [facility] CHEM PANEL Creatinine 1.1 0.5 - 1.4 04/16 [facility] CHEM PANEL Glucose Lvl 130 70 - 99 04/16 <sup>4</sup>I nterpretive Medical Data: Adult Center reference range values reflect the clinical guidelines
of the [employer]. CHEM PANEL eGFR 59 04/15 <sup>2</sup>R esult Medical Comment: The Center eGFR is calculated using the CKD-EPI formula. In most young, healthy individuals the eGFR will be >90 mL/min/1.73m2 . The eGFR declines with age. An eGFR of 60-89 may be normal in some populations, particularly the elderly, for whom the CKD-EPI formula has not been extensively validated. Use of the eGFR is not recommended in the following populations:& lt;br/>
I ndividuals with unstable creatinine concentration s, including patients and those with serious co-morbid conditions.<b r/>
Patie nts with extremes in muscle mass or diet.

The data above are obtained from the National Kidney Disease Education Program (NKDEP) which additionally recommends that when the eGFR is used in patients with extremes of body mass index for purposes of drug dosing, the eGFR should be multiplied by the estimated BMI. CHEM PANEL AGAP 11.1 10.0 - 04/15 [facility] CHEM PANEL Creatinine 1.3 0.5 - 1.4 04/15 [facility] CHEM PANEL Sodium Lvl 136 135 - 145 04/15 [facility] CHEM PANEL Glucose Lvl 131 70 - 99 04/15 <sup>5</sup>I nterpretive Medical Data: Adult Center reference range values reflect the clinical guidelines
of the [employer]. CHEM PANEL BUN 22 7 - 22 04/15 [facility] CHEM PANEL Potassium Lvl 4.1 3.5 - 5.1 04/15 [facility] CHEM PANEL Calcium Lvl 8.3 8.5 - 10.5 04/15 [facility] CHEM PANEL Chloride Lvl 103 95 - 109 04/15 [facility] CHEM PANEL CO2 26 24 - 32 04/15 [facility] CHEM PANEL Glucose Lvl 134 70 - 99 04/15 <sup>6</sup>I nterpretive Medical Data: Adult Center reference range values reflect the clinical guidelines
of the [employer]. CHEM PANEL AGAP 14.8 10.0 - 04/15 [facility] CHEM PANEL Calcium Lvl 9.0 8.5 - 10.5 04/15 [facility] CHEM PANEL Creatinine 1.5 0.5 - 1.4 04/15 [facility] CHEM PANEL Sodium Lvl 137 135 - 145 04/15 [facility] CHEM PANEL Potassium Lvl 4.8 3.5 - 5.1 04/15 [facility] CHEM PANEL CO2 24 24 - 32 04/15 [facility] CHEM PANEL Chloride Lvl 103 95 - 109 04/15 [facility] CHEM PANEL BUN 23 7 - 22 04/15 [facility] CHEM PANEL eGFR 50 04/15 <sup>3</sup>R esult Medical Comment: The [place] eGFR is calculated using the CKD-EPI formula. In most young, healthy individuals the eGFR will be >90 mL/min/1.73m2 . The eGFR declines with age. An eGFR of 60-89 may be normal in some populations, particularly the elderly, for whom the CKD-EPI formula has not been extensively validated. Use of the eGFR is not recommended in the following populations:& lt;br/>
I ndividuals with unstable creatinine concentration s, including patients and those with serious co-morbid conditions.<b r/>
Patie nts with extremes in muscle mass or diet.

The data above are obtained from the National Kidney Disease Education Program (NKDEP) which additionally recommends that when the eGFR is used in patients with extremes of body mass index for purposes of drug dosing, the eGFR should be multiplied by the estimated BMI. HEMATOLOGY Microcyte 1+ None Seen 04/15 [facility] *ABN* /2013 [facility] (04/15/14 3:20 AM) [place] HEMATOLOGY Segs 80.6 45.0 - 04/15 [facility] 75.0 [facility] HEMATOLOGY Lymphocytes # 1.2 1.0 - 5.5 04/15 [facility] HEMATOLOGY Monocytes # 0.9 0.0 - 0.8 04/15 [facility] HEMATOLOGY Lymphocytes 11.1 20.0 - 04/15 [place] 40.0 [facility] HEMATOLOGY Monocytes 8.1 2.0 - 12.0 04/15 [facility] HEMATOLOGY Basophils 0.2 0.0 - 1.0 04/15 [facility] HEMATOLOGY Segs-Bands # 8.9 1.5 - 8.1 04/15 [facility] HEMATOLOGY WBC 11.0 3.7 - 10.4 04/15 [facility] HEMATOLOGY RBC 5.18 4.70 - 04/15 [place] 6.10 [facility] HEMATOLOGY Hgb 13.1 14.0 - 04/15 [place] 18.0 [facility] HEMATOLOGY Hct 38.5 42.0 - 04/15 [place] 54.0 /2013 [facility] HEMATOLOGY MPV 9.7 7.4 - 10.4 04/15 [facility] HEMATOLOGY MCHC 34.0 32.0 - 04/15 [place] 36.0 /2013 [facility] HEMATOLOGY RDW 15.1 11.5 - 04/15 [place] 14.5 /2013 [facility] HEMATOLOGY MCV 74.3 80.0 - 04/15 [place] 94.0 /2013 [facility] HEMATOLOGY MCH 25.2 27.0 - 04/15 [place] 31.0 /2013 [facility] HEMATOLOGY Platelet 151 133 - 450 04/15 [place] [facility] URINE AND UA Glucose Negative Negative 04/15 [facility] (04/14/14 11:00 PM) [facility] URINE AND UA Ketones Negative Negative 04/15 [facility] *NA* [facility] (04/14/14 11:00 PM) [place] URINE AND UA Protein Trace Negative 04/15 [facility] *ABN* [facility] (04/14/14 11:00 PM) [place] URINE AND UA pH 6.0 5.0 - 8.0 04/15 [facility] URINE AND UA Leuk Est Negative Negative 04/15 [facility] (04/14/14 11:00 PM) [facility] URINE AND UA Blood Large Negative 04/15 [facility] *ABN* [facility] (04/14/14 11:00 PM) [place] URINE AND UA Nitrite Negative Negative 04/15 [facility] (04/14/14 11:00 PM) [facility] URINE AND UA 0.2 0.1 - 1.0 04/15 [facility] Urobilinogen /2013 [facility] URINE AND UA Bili Negative Negative 04/15 [facility] *NA* [facility] (04/14/14 11:00 PM) [place] URINE AND UA Spec Grav 1.025 <=1.030 04/15 [facility] Medical [place] URINE AND UA Color Yellow Yellow 04/15 [facility] *NA* [facility] (04/14/14 11:00 PM) [place] URINE AND UA Turbidity Slight Cloudy Clear 04/15 [facility] (04/14/14 11:00 PM) Medical [place] URINE AND UA RBC 51-100 0 - 2 04/15 [facility] /HPF Medical Center URINE AND UA Bacteria None Seen None Seen 04/15 [facility] (04/14/14 11:00 PM) [facility] URINE AND UA WBC 0-2 /HPF None Seen 04/15 [facility] STOOL /HPF /2013 [facility] URINE AND UA Sq Epi Rare /LPF Few /LPF 04/15 [facility] STOOL [facility] HEMATOLOGY Max Amp 68 52 - 71 04/15 [facility] HEMATOLOGY G-value 10.5 5.0 - 11.6 04/15 [facility] HEMATOLOGY Angle 76 64 - 80 04/15 [facility] HEMATOLOGY K-time 1.2 0.6 - 2.3 04/15 [facility] HEMATOLOGY R-time 0.8 0.4 - 0.7 04/15 [facility] HEMATOLOGY ACT (TEG) 121 86 - 118 04/15 [facility] HEMATOLOGY [place] 0.7 04/15 [facility] HEMATOLOGY Rapid TEG Citrated 04/15 [facility] Sample Type [facility] Blood [place] HEMATOLOGY Estimated % 0.9 0.0 - 7.5 04/15 [facility] Lysis [facility] BLOOD BANK ABO/Rh O POS 04/15 [facility] RESULTS [facility] BLOOD BANK Antibody Scrn Negative 04/15 [facility] RESULTS (04/14/14 7:10 PM) [facility] CHEM PANEL Lactic Acid 2.8 0.5 - 2.2 04/15 [facility] Lvl [facility] HEMATOLOGY MPV 9.8 7.4 - 10.4 04/15 [facility] HEMATOLOGY Platelet 194 133 - 450 04/15 [facility] HEMATOLOGY RDW 13.7 11.5 - 04/15 [facility] 14.5 [facility] HEMATOLOGY MCHC 32.9 32.0 - 04/15 [place] 36.0 /2013 [facility] HEMATOLOGY MCH 24.6 27.0 - 04/15 [place] 31.0 [facility] HEMATOLOGY MCV 74.9 80.0 - 04/15 [facility] 94.0 [facility] HEMATOLOGY WBC 13.0 3.7 - 10.4 04/15 [facility] HEMATOLOGY Hgb 13.9 14.0 - 04/15 [facility] 18.0 /2013 [facility] HEMATOLOGY RBC 5.63 4.70 - 04/15 [place] 6.10 [facility] HEMATOLOGY Hct 42.2 42.0 - 04/15 [facility] 54.0 /2013 [facility] HEMATOLOGY Microcyte 2+ None Seen 04/15 [facility] *ABN* [facility] (04/14/14 7:10 PM) [place] HEMATOLOGY Basophils 0.1 0.0 - 1.0 04/15 [facility] HEMATOLOGY Segs-Bands # 10.0 1.5 - 8.1 04/15 [facility] HEMATOLOGY Eosinophils 0.1 0.0 - 4.0 04/15 [facility] HEMATOLOGY Monocytes # 1.2 0.0 - 0.8 04/15 [facility] HEMATOLOGY Basophils # 0.0 0.0 - 0.2 04/15 [facility] HEMATOLOGY Eosinophils # 0.0 0.0 - 0.5 04/15 [facility] HEMATOLOGY Lymphocytes # 1.8 1.0 - 5.5 04/15 [facility] HEMATOLOGY Segs 76.7 45.0 - 04/15 [facility] 75.0 [facility] HEMATOLOGY Plt Morph Normal 04/15 [facility] (04/14/14 7:10 PM) [facility] HEMATOLOGY Monocytes 9.3 2.0 - 12.0 04/15 [facility] HEMATOLOGY Lymphocytes 13.8 20.0 - 04/15 [facility] 40.0 [facility] TOXICOLOGY Etoh (%) <0.003 04/15 <sup>7</sup>I nterpretive Medical Data: Ethanol Center testing results should be used for medical purposes only.
Neg ative Range: <0.003%
T oxic Range: >0.25% TOXICOLOGY Ethanol Lvl <3 04/15 <sup>8</sup>I nterpretive Medical Data: Center Negative Range: <3 mg/dL
Tox ic Range: >250 mg/dL Pathology Reports No Data Provided for This Section Diagnostic Reports Report Value Date Source Cystourethrogram retrograde EXAM: FLUOROSCOPY RETROGRADE URETHROGRAM 2013 ALENA Tamayo DX EXAM: FLUOROSCOPY CYSTOGRAM WITH CONTRAST DATE: 05/31/2014 at 1050 hours. INDICATION: Urethral trauma. ADDITIONAL INFORMATION: None. COMPARISON: Retrograde urethrogram dated 04/14/2014 at 2001 hours. TECHNIQUE: The penis was prepped with Betadine and draped in sterile fashion. A 12 Spanish catheter was inserted and inflated with 4 cc of saline at the level of the fossa navicularis. Approximately 25 cc of Omni paque was injected into the Borja catheter, and spot images of the urethra were obtained. Subsequently, approximately 400 cc of Cysto-Conray II was infused through the patient's existing suprapubic catheter. Early, delayed filling, and post void radiographs were obtained in AP and oblique projections. Attempts at voiding intravesical contrast were made with suprapubic catheter clamped. FLUOROSCOPY TIME: 2.0 minutes. FINDINGS: A lead nitrate processor radiograph of the abdomen pelvis reveals suprapubic catheter. Surgical clips also overlying the left side medially. Contrast opacifies the penile urethra to the level of prior contrast extravasation, where there is an abrupt cut off. No passage of contrast into the bulbous, membranous or static urethra. No extravasation. Urinary bladder contour is smooth. No extravasated contrast is present in the pelvis. Attempts at voiding were unsuccessful. Post drainage film shows no significant post void residual or extravasation of contrast. IMPRESSION: 1. Obstruction of urethra at the junction of the penile and bulbus urethra in area of prior disruption. No contrast extravasation. 2. Urinary bladder appears normal. Interpreted by Balaji Tang MD. Cystogram DX EXAM: FLUOROSCOPY RETROGRADE URETHROGRAM 05/31/2014 ALENA Tamayo EXAM: FLUOROSCOPY CYSTOGRAM WITH CONTRAST DATE: 05/31/2014 at 1050 hours. INDICATION: Urethral trauma. ADDITIONAL INFORMATION: None. COMPARISON: Retrograde urethrogram dated 04/14/2014 at 2001 hours. TECHNIQUE: The penis was prepped with Betadine and draped in sterile fashion. A 12 Spanish catheter was inserted and inflated with 4 cc of saline at the level of the fossa navicularis. Approximately 25 cc of Omni paque was injected into the Borja catheter, and spot images of the urethra were obtained. Subsequently, approximately 400 cc of Cysto-Conray II was infused through the patient's existing suprapubic catheter. Early, delayed filling, and post void radiographs were obtained in AP and oblique projections. Attempts at voiding intravesical contrast were made with suprapubic catheter clamped. FLUOROSCOPY TIME: 2.0 minutes. FINDINGS: A lead nitrate processor radiograph of the abdomen pelvis reveals suprapubic catheter. Surgical clips also overlying the left side medially. Contrast opacifies the penile urethra to the level of prior contrast extravasation, where there is an abrupt cut off. No passage of contrast into the bulbous, membranous or static urethra. No extravasation. Urinary bladder contour is smooth. No extravasated contrast is present in the pelvis. Attempts at voiding were unsuccessful. Post drainage film shows no significant post void residual or extravasation of contrast. IMPRESSION: 1. Obstruction of urethra at the junction of the penile and bulbus urethra in area of prior disruption. No contrast extravasation. 2. Urinary bladder appears normal. Interpreted by Balaji Tang MD. Suprapubic Aspirate (VR) PROCEDURE: Suprapubic catheter change 05/09/2014 [facility] DATE: May 09, 2014 at 0916 hours SERVER SOFTWARE ENGINEER: Monty ASSISTANTS (IF ANY): Vineet CONTRAST: 25 mL Visipaque within the urinary bladder lumen FLUOROSCOPIC TIME: 1.3 minutes RADIATION DOSE: 53.4 mGy COMPLICATIONS: None. SEDATION/PAIN CONTROL: Fentanyl and Versed per protocol INDICATION(S): Leaking around pre-existing suprapubic catheter. History of urethral injury. PROCEDURE: The existing 10 Spanish suprapubic catheter was injected and images obtained. The tube was then removed and a new 16 F Borja catheter was placed into the urinary bladder. The balloon was infla radha with 10 mL of saline and pulled up against the bladder wall. The tube was sutured and a sterile dressing applied. FINDINGS: Initial injection shows normal appearing urinary bladder. After exchange, tube is in good position in the urinary bladder. IMPRESSION: Exchange and upsizing of suprapubic catheter as discussed above. Dr. Millan was present for the entire procedure. Urethrogram retrograde DX Addendum : Fluoro time is 00:45 seconds, Skin dose 65:88 mGy 04/14/2014 [facility] EXAM: RETROGRADE URETHROGRAM Center DATE: 04/14/2014 INDICATION: Hematuria COMPARISON: None TECHNIQUE: Supervisor Channel Process radiograph of the pelvis is obtained. Using sterile technique, a Borja catheter was inserted and inflated with 2 cc of saline at the level of the fossa navicularis. Approximately 25 cc of contrast was injected into the Borja catheter, and multiple spot images of the penile urethra were obtained. DISCUSSION: The lead nitrate processor radiograph demonstrates no contrast present over the field of view which includes the urethra. There is evidence of injury to the bulbar urethra, with extravasation of contrast in the surrounding soft tissues. There is no opacification of the posterior at the or the bladder. IMPRESSION: Bulbar urethral injury with extravasation of contrast. Evaluation of the posterior urethra is limited as it was not opacified. Consultation Notes No Data Provided for This Section Discharge Summaries No Data Provided for This Section History and Physicals No Data Provided for This Section Vital Signs Vital Sign Value Date Comments Source Respitory Rate 20 09/18/2014 [facility] Systolic (mm Hg) 144 09/18/2014 [facility] Diastolic (mm Hg) 89 09/18/2014 [facility] Temperature Oral (F) 97.9 F 09/18/2014 [facility] Heart Rate 61 09/18/2014 [facility] Heart Rate 60 09/18/2014 [facility] Respitory Rate 18 09/18/2014 [facility] Systolic (mm Hg) 146 09/18/2014 [facility] Diastolic (mm Hg) 88 09/18/2014 [facility] Temperature Oral (F) 98.3 F 09/18/2014 [facility] Systolic (mm Hg) 169 09/18/2014 [facility] Diastolic (mm Hg) 80 09/18/2014 [facility] Temperature Oral (F) 98 F 09/18/2014 [facility] Respitory Rate 18 09/18/2014 [facility] Heart Rate 56 09/18/2014 [facility] Weight 109.091 09/15/2014 [facility] Weight 109.091 09/07/2014 [facility] BMI Calculated 32.62 09/07/2014 [facility] Height 182.88 cm 09/07/2014 [facility] Diastolic (mm Hg) 77 07/04/2014 [facility] Systolic (mm Hg) 128 07/04/2014 [facility] Heart Rate 58 07/04/2014 [facility] Respitory Rate 18 07/04/2014 [facility] Temperature Oral (F) 97.9 F 07/04/2014 [facility] Diastolic (mm Hg) 88 07/04/2014 [facility] Respitory Rate 18 07/04/2014 [facility] Heart Rate 60 07/04/2014 [facility] Systolic (mm Hg) 154 07/04/2014 [facility] Temperature Oral (F) 97.7 F 07/04/2014 [facility] Respitory Rate 18 07/04/2014 [facility] Center Heart Rate 60 07/04/2014 [facility] Diastolic (mm Hg) 111 07/04/2014 [facility] Center Systolic (mm Hg) 203 07/04/2014 [facility] BMI Calculated 32.89 07/04/2014 [facility] Center Weight 110 07/04/2014 [facility] Height 182.88 cm 07/04/2014 [facility] Center Respitory Rate 16 06/14/2014 [facility] Center Diastolic (mm Hg) 73 06/14/2014 [facility] Center Temperature Oral (F) 98.6 F 06/14/2014 [facility] Center Heart Rate 63 06/14/2014 [facility] Systolic (mm Hg) 148 06/14/2014 [facility] Center Diastolic (mm Hg) 98 06/14/2014 [facility] Center Systolic (mm Hg) 194 06/14/2014 [facility] Respitory Rate 20 06/14/2014 [facility] Heart Rate 72 06/14/2014 [facility] Temperature Oral (F) 98.0 F 06/14/2014 [facility] Center Respitory Rate 18 06/14/2014 [facility] Heart Rate 64 06/14/2014 [facility] Center Diastolic (mm Hg) 126 06/14/2014 [facility] Center Systolic (mm Hg) 222 06/14/2014 [facility] Weight 110 06/14/2014 [facility] BMI Calculated 32.89 06/14/2014 [facility] Height 182.88 cm 06/14/2014 [facility] Center Diastolic (mm Hg) 94 05/09/2014 [facility] Center Systolic (mm Hg) 154 05/09/2014 [facility] Center Diastolic (mm Hg) 97 05/09/2014 [facility] Center Respitory Rate 25 05/09/2014 [facility] Center Systolic (mm Hg) 151 05/09/2014 [facility] Center Diastolic (mm Hg) 98 05/09/2014 [facility] Center Respitory Rate 25 05/09/2014 [facility] Center Systolic (mm Hg) 155 05/09/2014 [facility] Center Respitory Rate 16 05/09/2014 [facility] Weight 110 05/09/2014 [facility] Height 182.88 cm 05/09/2014 [facility] BMI Calculated 32.89 05/09/2014 [facility] Diastolic (mm Hg) 86 05/08/2014 [facility] Temperature Oral (F) 98.0 F 05/08/2014 [facility] Respitory Rate 16 05/08/2014 [facility] Systolic (mm Hg) 142 05/08/2014 [facility] Heart Rate 58 05/08/2014 [facility] Height 182.88 cm 05/08/2014 [facility] Weight 110 05/08/2014 [facility] BMI Calculated 32.89 05/08/2014 [facility] Respitory Rate 16 05/08/2014 [facility] Temperature Oral (F) 97.7 F 05/08/2014 [facility] Heart Rate 57 05/08/2014 [facility] Diastolic (mm Hg) 89 05/08/2014 [facility] Systolic (mm Hg) 148 05/08/2014 [facility] Diastolic (mm Hg) 94 04/16/2014 [facility] Systolic (mm Hg) 158 04/16/2014 [facility] Heart Rate 72 04/16/2014 [facility] Temperature Oral (F) 99.7 F 04/16/2014 [facility] Respitory Rate 18 04/16/2014 [facility] Diastolic (mm Hg) 86 04/16/2014 [facility] Systolic (mm Hg) 154 04/16/2014 [facility] Respitory Rate 18 04/16/2014 [facility] Heart Rate 70 04/16/2014 [facility] Temperature Oral (F) 98.4 F 04/16/2014 [facility] Temperature Oral (F) 98.6 F 04/16/2014 [facility] Heart Rate 60 04/16/2014 [facility] Respitory Rate 18 04/16/2014 [facility] Weight 116.364 04/15/2014 [facility] BMI Calculated 34.79 04/15/2014 [facility] Height 182.88 cm 04/15/2014 [facility] Diastolic (mm Hg) 91 05/10/2012 [facility] Heart Rate 73 05/10/2012 [facility] Respitory Rate 15 05/10/2012 [facility] Systolic (mm Hg) 148 05/10/2012 [facility] Respitory Rate 14 05/10/2012 [facility] Systolic (mm Hg) 155 05/10/2012 [facility] Diastolic (mm Hg) 100 05/10/2012 [facility] Diastolic (mm Hg) 106 05/10/2012 [facility] Respitory Rate 15 05/10/2012 [facility] Systolic (mm Hg) 155 05/10/2012 [facility] Temperature Oral (F) 98.3 F 05/10/2012 [facility] Heart Rate 56 05/10/2012 [facility] Height 182.88 cm 05/07/2012 [facility] Weight 115.909 05/07/2012 [facility] Encounters Location Location Encounter Encounter Reason Attending ADM DC Status Source Details Type Number For Provider Date Date Visit [facility] [place] [id number] CHARITY QUAN 05/10 05/10 Discharg [facility] ed [facility] Inpatient [id number] Jose L 04/15 04/16 [facility] Roni 1 [facility] [place] [id number] Abebe 05/08 05/08 [facility] Emergency 2 [facility] Bedded [id number] Jose L 05/09 05/09 [facility] Outpatient 3 [facility] Outpt Diag [id number] [place] Rh[place] 05/31 06/01 [facility] [place] [id number] Seema 06/14 06/14 [facility] Emergency 4 [facility] [place] [id number] Dinesh 07/04 07/04 [facility] Emergency 5 [facility] OBS [id number] Run Rhys 09/15 09/18 [facility] Observation [facility] Procedures Procedure Code Date Perfomer Comments Source Bypass [id number] [facility] Finger operation [id number] [facility] Procedure<sup>1< [id number] 1L eye [facility] /sup> [facility] Procedure<sup>2< [id number] 2Botox [facility] /sup> injections B Medical eyes [place] CABG x 3 - [id number] [facility] Coronary artery Medical bypass grafts x Center 3 Lacrimal sac [id number] [facility] Assessment and Plan Assessment and Plan Date Source Extracted from:Title: Clinical Document 09/18/2014 [facility] Author: Katrin Carmona Date: 09/18/14 ISOLATION ALERT This patient has a history of infection/colonization with a multi-drug resistant organism. Organism Site Date MDR-Enterobacter urine 07/04/14 Isolation Required: CONTACT Before isolation precautions may be discontinued, the following protocol must be followed and Infection Control should be notified: Organism Status Cultures Sites MRSA Off abx x 72hrs or 7 days if on dialysis and vancomycin x2, 1 week apart NICU / Pediatrics Anterior nares, wounds, and any previous positive sites x2, 48 hr. apart Adult VRE Off abx x 72hrs or 7 days if on dialysis and renally-cleared drug active against patient's isolate x3, 1 week apart Stool and any previous positive sites PCN-R or PCN-Intermediate Streptococcus pneumoniae 48 hrs of effective antibiotic and resolution of clinical S/S of pulmonary involvement Multi-drug Resistant Gram Negatives: Having at least one drug resistant in at least 3 of the following categories: 1) Cefepime/ceftazidime; 2) Pip/tazo or ticarcillin/clavulanic acid; 3) Gent/Tobra/Amik ; 4) Meropenem or Imipenem; 5)Cipro or Moxifloxacin Off abx x 72hrs or 7 days if on dialysis and aminoglycoside x2, 1 week apart Urine, stool, throat, and any previous positive sites Stenotrophomonas R to T/S Off abx x 72hrs or 7 days if on dialysis and aminoglycoside x2, 48h apart Urine, stool, throat, and any previous positive sites Chryseobacterium meningosepticum (formerly Flavobacterium meningosepticum) and other Chryseobacterium spp. R to minocycline, rifampin, or vancomycin Off abx x 72hrs or 7 days if on dialysis and vancomyc in x2, 48h apart Urine, stool, throat, and any previous positive sites Gram negative organisms with Extended Spectrum Beta Lactamases (ESBL) Off abx x 72hrs or 7 days if on dialysis and aminoglycoside x2, 1 week apart Urine, stool, throat, and any previous positive sites Salmonella, Shigella Maintain precautions for duration of illness and Off abx x 48h x3, 24 h. apart Stool TB: Pulmonary or Laryngeal TB is judged clinically unlikely OR patient is improving on effective therapy 3 negative smears on different days Sputum Varicella Maintain precautions until all lesions are crusted. Place susceptible patients on precautions beginning day 8 after exposure to day 21 after last exposure or day 28 for patients who have received VZIG or IVIG Rubeola (Measles) Maintain precautions for duration of illness. Place susceptible patients on precautions beginning day 5 after exposure to day 21 after last exposure. C. difficile colitis Maintain precautions for duration of diarrhea Influenza Isolation for at least 10 days from onset of symptoms. Repeat negative culture for influenza Nasal wash IT IS NOT NECESSARY TO CULTURE STERILE SITES (BLOOD, CSF, HEALED WOUNDS) WHEN TRYING TO DISCONTINUE ISOLATION. Consult Infection Control for suggested regimens for decolonization of patients with MRSA as well as for any questions. We can be reached at [phone]. Extracted from:Title: [facility] Author: Carlos Reeder MD Date: 09/18/14 Discharge Information dc home condition stable diet: ADA Meds: see med Rec F/u in [address] Joiner Activity: ad tamika, no sitting directly on perineum, use donut Discharge Plan Discharge Summary Plan Discharge Status: improved. Discharge instructions given: to patient. Discharge disposition: discharge to home self care. Prescriptions: continue same medications, written and given to patient. Extracted from:Title: [facility] Author: Carlos Reeder MD Date: 09/17/14 Impression and Plan The patient was seen and examined by me with the resident/KNOWLEDGE MANAGEMENT CONSULTANT/PA and I agree with the History/Exam documented. 64 year old male s/p EPA doing well POD#2 1) Reg diet 2) continue PO pain meds 3) Heparin 5000units SQ [id number] 4) cont to monitor drain outputs, awaiting for output to be < 10cc/24hours Extracted from:Title: [facility] 04/16/2014 [facility] Author: Edis Joe MD Date: 04/16/14 Progress Note - Daily [facility] Completed: Apr, 10: 02 by Edis Joe MD RM: COU - 12, [facility], NAVARRO LERMA 63y (: 1950) M Attending: Jose L Rawls MD Service: Urology Service Reason for Admission: URETHRAL INJURY Working DRG: None Documented Code status: Full Code [Ordered] Current diet: Isolation: None Documented Allergies: NKDA SUBJECTIVE No acute events overnight OBJECTIVE : SPT with clear urine. 24hr Labs 04/16 0803 Glucose POC 125 H 04/16 0327 Glucose Lvl 130 H BUN 15 Creatinine Lvl 1.1 Sodium Lvl 139 Potassium Lvl 4.3 Chloride Lvl 105 CO2 27 AGAP 11.3 Calcium Lvl 8.6 eGFR 72 04/15 2131 Glucose POC 143 H 04/15 1648 Glucose POC 160 H 04/15 1223 Glucose POC 117 H 04/15 1206 Glucose Lvl 131 H BUN 22 Creatinine Lvl 1.3 Sodium Lvl 136 Potassium Lvl 4.1 Chloride Lvl 103 CO2 26 AGAP 11.1 Calcium Lvl 8.3 L eGFR 59 Borja still necessary (Yes/No): Line still necessary (Yes/No): Vitals Tmp(F) Pulse BP RR SpO2 FIO2 04/16 08:04 99.7 72 158/84 18 97 --- 04/16 02:11 98.4 70 154/86 18 94 --- 04/15 21:38 98.6 60 149/79 18 95 --- 04/15 19:27 98.6 70 152/75 18 100 --- 04/15 16:49 98.4 73 140/75 18 95 --- 24 Hr Tmax: 99.7F (37.61c) at 04/16 08:04 Vital Signs are the last 5 in the past 48 hours. Date Wt(kg) Wt(lb) Ht(cm) Ht(in) Method 04/14 (initial) 116.36 256.00 182.88 72.00 Stated I&O Record In Out Bal 04/16 24hr Tot 600 600 0 04/15 24hr Tot 4300 6100 -1800 Medications (21) Active Scheduled Meds (8): 04/15/14 dutasteride (Avodart) 0.5 mg PO Daily 04/15/14 (Suspended) enoxaparin (Lovenox) 40 mg SUB-Q Daily 04/15/14 famotidine 20 mg PO Q12H 04/15/14 losartan 100 mg PO Daily 04/15/14 mesalamine (Apriso) 1.5 gm PO QAM 04/15/14 nebivolol (Bystolic) 5 mg PO Daily 04/15/14 rosuvastatin (Crestor) 10 mg PO Bedtime 04/15/14 tamsulosin (Flomax) 0.4 mg PO Daily Unscheduled Meds: None PRN Meds (11): 04/14/14 Dextrose 50% in Water IV (Dextrose 50% Syringe) 12.5 gm IVP PRN 04/14/14 Insulin regular 2 unit SUB-Q TID-Before Meals 04/14/14 Insulin regular 4 unit SUB-Q TID-Before Meals 04/14/14 Insulin regular 6 unit SUB-Q TID-Before Meals 04/14/14 Insulin regular 8 unit SUB-Q TID-Before Meals 04/14/14 Insulin regular 10 unit SUB-Q TID-Before Meals 04/14/14 acetaminophen-codeine (acetaminophen-codeine #3) 1 tab PO Q4H 04/14/14 glucagon 1 mg IM PRN 04/14/14 hydromorphone 0.3 mg IVP Q3H 04/14/14 hyoscyamine (Levsin) 0.125 mg SL Q4H 04/14/14 sodium chloride (Saline Flush 0.9%) 10 mL IVP PRN One Time Meds (1): 04/15/14 (Completed) Sodium Chloride 0.9% IV (NS (Bolus) IV) 1,000 mL IV ONCE 1,000 ml/hr Continuous Infusions (1): 04/14/14 Lactated Ringers Injection IV 1,000 mL 1,000 mL 100 ml/hr ASSESSMENT and PLAN: urethral disruption 2/2 to straddle injury/trauma. s/p SPT. Progressing well. Electrolytes stable. Will dc home and follow in clinics with Dr. Joiner. Discussed with attending, Dr. Rawls. Addendum by Jose L Rawls MD on 04/18/2014 07:37 Dr. Rawls: I saw and examined the patient, agree with the H+P and formed the plan described by Dr. Garcia. Extracted from:Title: [facility] Author: Edis Joe MD Date: 04/15/14 Urology Consult H&P Chief Complaint: Perineal trauma and urinary retention History of Present Illness: Mr Scanlon is a 63 yo male with PMHx of DM, HTN, CAD s/p CABG who sustained a trauma to the perineum on 04/14/14 and was taken to an OSH. CT scan was performed which revealed no intrabdominal pathology. Scrotal ultrasound was also negative. However, patient has been unable to urinate. He was transferred to [facility] ER and we attempted to place a borja catheter but were unsuccessful. RUG was obtained whi ch revealed bulbar urethral tear. Patient denied any prior history of AUR or urologic procedures. Takes Flomax and Finasteride for BPH. Past Medical History:as per HPI Past Surgical History: as per hPI Medications: refer to Med Rec Allergies: NKDA Review Of Systems: CONSTITUTIONAL: No weight loss, no fever, no chills, weakness or fatigue. HEENT: Eyes: No visual loss, blurred vision, double vision or yellow sclerae. Ears, Nose, Throat: No hearing loss, sneezing, congestion, runny nose or sore throat. SKIN: No rash or itching. CARDIOVASCULAR: No chest pain, chest pressure or chest discomfort. No palpitations or edema. RESPIRATORY: No shortness of breath, cough or sputum. GASTROINTESTINAL: No nausea, vomiting, abdominal pain, anorexia, constipation, diarrhea. GENITOURINARY: No burning on urination. No hesitancy or change in habits. NEUROLOGICAL: No headache, dizziness, syncope, paralysis, ataxia, numbness or tingling in the extremities. No change in bowel or bladder control. MUSCULOSKELETAL: No muscle, back pain, joint pain or stiffness. HEMATOLOGIC: No anemia, bleeding or bruising. LYMPHATICS: No enlarged nodes. No history of splenectomy. PSYCHIATRIC: No history of depression or anxiety. ENDOCRINOLOGIC: No reports of sweating, cold or heat intolerance. No polyuria or polydipsia. ALLERGIES: No history of asthma, hives, eczema or rhinitis. Physical Exam GENERAL APPEARANCE: The patient is alert, oriented and is in no acute distress. VITAL SIGNS: T-max was , currently , blood pressure , respirations , and heart rate . HEENT: Head is normocephalic. The sinuses are nontender. Pupils are equal and reactive to light. EOMI. The nares are patent. Oropharynx reveals poor dentition but is clear without lesions. NECK: Supple without lymphadenopathy. No thyroid nodules CARDIOVASCUAL: Normal S1 and S2 without murmur, gallop, or rub. No JVD PULMONARY: Normal breath sounds are heard in the anterior and posterior lung solis bilaterally. No wheezing, no rhonchi. ABDOMEN: Soft, nontender, nondistended with good bowel sounds heard. Inguinal area is normal. : blood at meatus. Mildly swollen scrotum. EXTREMITIES: Without cyanosis, clubbing or edema. 2+ pulses in all 4 extremities. NEUROLOGICAL: Gross nonfocal. SKIN: Warm and dry without any rash. Labs: [facility] BUN: 22 mg/dL (04/15/14) Hct: 38.5 % (04/15/14) Hgb: 13.1 g/dL (04/15/14) MCH: 25.2 pg (04/15/14) MCHC: 34.0 g/dL (04/15/14) MCV: 74.3 fL (04/15/14) MPV: 9.7 fL (04/15/14) Platelet: 151 K/CMM (04/15/14) RBC: 5.18 M/CMM (04/15/14) RDW: 15.1 % (04/15/14) WBC: 11.0 K/CMM (04/15/14) Imaging: as per HPI Assessment/Plan: 63 yo male patient with straddle injury and bulbar urethral disruption s/p SPT placement. Will admit for post-obstructive diuresis management and follow on IV hydration and electrolytes. Case was discussed with chief resident, Dr. Fitzgerald and attending, Dr. Rawls. - Thank you for allowing us to participate in the care of this patient. Please call with any additional questions or concerns. Dr. Rawls: I saw and examined the patient, agree with the H+P and formed the plan described by Dr. Garcia. Plan of Care No Data Provided for This Section Social History Social History Date Source Social History TypeResponse 04/15/2014 [facility] Alcohol Use: Never Smoking Status Never smoker, Type: Cigarettes, Exposure to Tobacco Smoke None, Cigarette Smoking Last 365 Days No, Reg Smoking Cessation Counseling Yes Social History TypeResponse 04/15/2014 [facility] Alcohol Never Smoking Status Former smoker; Type: Cigarettes; Exposure to Tobacco Smoke None; Cigarette Smoking Last 365 Days No; Reg Smoking Cessation Counseling Yes1 1quit in 2007 Family History No Data Provided for This Section Advance Directives No Data Provided for This Section Functional Status No Data Provided for This Section
--- OUTSIDE RECORDS SUMMARY | 2019-02-18 06:37 | XMS REPORT ---
:1950 [facility] Address [address] [place] [address] Dr. Gould. [address] [place] [id number] Care Team Providers Name Role Phone Unavailable Unavailable Unavailable Problems This patient has no known problems. Allergies, Adverse Reactions, Alerts This patient has no known allergies or adverse reactions. Medications This patient has no known medications.
--- OUTSIDE RECORDS SUMMARY | 2019-02-18 06:37 | XMS REPORT | CCD ---
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 3 12/04/2009 Active Chest pain Active Epiphora due to insufficient drainage Active HTN [Hypertension] 12/04/2009 Active Hyperglycemia 12/04/2009 Active Malnutrition (calorie) NOS 12/04/2009 Active Pain Active Medications Medication Instructions Start Date End Date Status Crestor 10 mg oral tablet 10 mg, 1 tab, PO, Daily, 05/07/2012 Ordered 30 tab, Substitution Allowed, TAB Bystolic 5 mg oral tablet 5 mg, 1 tab, PO, Daily, 05/07/2012 Ordered 30 tab, Substitution Allowed, TAB Apriso 0.375 g oral 1.5 gm, 4 cap, PO, QAM, 05/10/2012 Ordered capsule, extended release 120 cap, Substitution Allowed, ERCAP cefazolin 2 gm, Route: IVPB, ONCE, 05/10/2012 05/10/2012 Completed Dosing Weight 115.909, kg, Start date: 05/10/12 11:08:00, Duration: 1 doses or times, Stop date: 05/10/12 11:08:00 losartan 100 mg oral 100 mg, 1 tab, PO, Daily, 05/10/2012 Ordered tablet 30 tab, Substitution Allowed, TAB BLUE PILLS BLUE PILLS, 4 tabs, PO, 05/07/2012 05/10/2012 Discontinued Daily, Substitution Allowed BLOOD PRESSURE PILL BLOOD PRESSURE PILL, 1 05/07/2012 05/10/2012 Discontinued tab, PO, Daily, Substitution Allowed lidocaine 1% 0.5 mL, Route: INTRADERM, 05/10/2012 05/10/2012 Completed Drug Form: INJ, Dosing Weight 115.909, kg, ONCALL, Start date: 05/10/12 10:00:00, Duration: 1 doses or times Lactated Ringers 1,000 mL, Rate: 25 ml/hr, 05/10/2012 05/10/2012 Discontinued Injection IV 1,000 mL Infuse over: 40 hr, Route: IV, kg, Total Volume: 1,000, Start date: 05/10/12 9:14:00, Duration: 30 day, Stop date: 06/09/12 9:13:00 flumazenil 0.2 mg, 2 mL, Route: IVP, 05/10/2012 05/10/2012 Discontinued Drug form: INJ, PRN, Dosing Weight 115.909, kg, PRN Benzodiazepine Reversal, Initial dose, Start date: 05/10/12 10:58:00, Duration: 30 day, Stop date: 06/09/12 10:57:00 naloxone 0.04 mg, 0.1 mL, Route: 05/10/2012 05/10/2012 Discontinued IVP, Drug form: INJ, Q2MIN, Dosing Weight 115.909, kg, PRN Narcotic Reversal, Start date: 05/10/12 10:58:00, Duration: 8 doses or times, Stop date: Limited # of times ondansetron 4 mg, 2 mL, Route: IVP, 05/10/2012 05/10/2012 Discontinued Drug form: INJ, ONCE, Dosing Weight 115.909, kg, PRN Nausea & Vomiting, Start date: 05/10/12 10:58:00 promethazine + Sodium 6.25 mg, 0.25 mL, Route: 05/10/2012 05/10/2012 Discontinued Chloride 0.9% IV 50 mL IVPB, ONCE, Dosing Weight 115.909, kg, PRN Nausea & Vomiting, Start date: 05/10/12 10:58:00 enalapril 0.625 mg, 0.5 mL, Route: 05/10/2012 05/10/2012 Discontinued IVP, Drug form: INJ, Q5Min, Dosing Weight 115.909, kg, PRN Elevated BP, Start date: 05/10/12 10:58:00, Duration: 4 doses or times, Stop date: Limited # of times meperidine 12.5 mg, 0.25 mL, Route: 05/10/2012 05/10/2012 Discontinued IVP, Drug form: INJ, Q30Min, Dosing Weight 115.909, kg, PRN Other -See Comment, For shivering, Start date: 05/10/12 10:58:00, Duration: 2 doses or times, Stop date: Limited # of times hydromorphone 0.5 mg, 0.25 mL, Route: 05/10/2012 05/10/2012 Discontinued IVP, Drug form: INJ, Q15Min, Dosing Weight 115.909, kg, PRN Other -See Comment, Start date: 05/10/12 10:58:00, Duration: 5 doses or times, Stop date: Limited # of times, pain score 4-10 morphine Sulfate 2 mg, 1 mL, Route: IVP, 05/10/2012 05/10/2012 Discontinued Drug form: INJ, Q5Min, Dosing Weight 115.909, kg, PRN Other -See Comment, Start date: 05/10/12 10:58:00, Duration: 5 doses or times, Stop date: Limited # of times, pain score 4-10 albuterol 0.083% 4.98 mg, 6 mL, Route: 05/10/2012 05/10/2012 Discontinued inhalation solution NEB, Drug form: SOLN, RQ8H, Dosing Weight 115.909, kg, PRN Wheezing, Start date: 05/10/12 10:58:00, Duration: 30 day, Stop date: 06/09/12 10:57:00 Flomax 0.4 mg oral 0.4 mg, 1 cap, PO, Daily, 05/07/2012 Ordered capsule 30 cap, Substitution Allowed, CAP Avodart 0.5 mg oral 0.5 mg, 1 cap, PO, Daily, 05/07/2012 Ordered capsule 30 cap, Substitution Allowed, CAP aspirin 325 mg tablet 325 mg, 1 tab, PO, Daily, 05/07/2012 05/10/2012 Discontinued Substitution Allowed Vital Signs Most recent to oldest 1 2 3 [Reference Range]: Height 182.88 cm (05/07/2012 15:45:00) Temperature Oral 98.3 DegF [96.4-99.1 DegF] (05/10/2012 09:13:00) Systolic Blood Pressure 148 mmHg 155 mmHg 155 mmHg [90-140 mmHg] *HI* *HI* *HI* (05/10/2012 13:30:00) (05/10/2012 13:15:00) (05/10/2012 13:00:00) Diastolic Blood Pressure 91 mmHg 100 mmHg 106 mmHg [60-90 mmHg] *HI* *HI* *HI* (05/10/2012 13:30:00) (05/10/2012 13:15:00) (05/10/2012 13:00:00) Respiratory Rate [14-20 15 BRMIN 14 BRMIN 15 BRMIN BRMIN] (05/10/2012 13:30:00) (05/10/2012 13:15:00) (05/10/2012 13:00:00) Peripheral Pulse Rate 73 bpm 56 bpm [60-100 bpm] (05/10/2012 13:30:00) *LOW* (05/10/2012 09:13:00) Weight 115.909 kg (05/07/2012 15:45:00)
--- OUTSIDE RECORDS SUMMARY | 2019-02-18 06:38 | XMS REPORT | Summary of Care ---
:1950 Author Organization [facility] Address [address] [place] [id number] Care Team Providers Name Role Phone Rick Deras MD Primary Care Provider Reason for Visit Reason Comments Refill Request Encounter Details Date Type Department Care Team Description 02/13/2019 Refill [facility] Rick Deras MD Refill Request - [address] [phone] [place] [address] Allergies No Known Allergiesdocumented as of this encounter (statuses as of 02/14/2019) Medications Medication Sig Dispensed Refills Start Date End Date Status amLODIPine Take 10 mg by 0 08/03/2015 Active (NORVASC) 10 mg mouth daily. tablet SIMBRINZA 1-0.2 % Place 1 Drop in 0 07/11/2015 Active ophthalmic drops both eyes daily. latanoprost Place 1 Drop in 0 08/15/2015 Active (XALATAN) 0.005 % both eyes every ophthalmic drops evening. BYSTOLIC 20 mg Take 20 mg by 0 08/13/2015 Active tablet mouth daily. CRESTOR 10 mg Take 10 mg by 0 2015 Active tablet mouth daily. losartan (COZAAR) TAKE 1 TABLET 90 tablet 3 05/19/2016 Active 100 mg tablet EVERY DAY triamcinolone Apply to 45 g 2 09/23/2016 Active acetonide 0.1 % area(s) 2 (two) creamIndications: times daily. Eczema, unspecified type VESICARE 10 mg Take 10 mg by 11 12/02/2016 Active tablet mouth every morning. tamsulosin 0.4 mg TAKE ONE 90 capsule 3 03/23/2018 Active 24 hr capsule CAPSULE BY MOUTH EVERY DAY glimepiride 2 mg Take 1 tablet 90 tablet 3 04/07/2018 Active tablet by mouth daily. dulaglutide inject 1.5 mg 12 Syringe 2 04/08/2018 Active (TRULICITY) 1.5 under the skin mg/0.5 mL weekly. PnIjIndications: Type 2 diabetes mellitus without complication, without long-term current use of insulin ONETOUCH VERIO Use as directed 100 Strip 4 09/09/2018 Active stripIndications: Type 2 diabetes mellitus without complication, without long-term current use of insulin Lancets (ACCU-CHEK Use as directed 100 Each 1 09/24/2018 Active SOFTCLIX LANCETS) to monitor MiscIndications: blood glucose Type 2 diabetes once a day for mellitus with ICD of E11.9 complication, without long-term current use of insulin albuterol 90 Inhale 2 Puffs 3 Inhaler 1 10/04/2018 Active mcg/actuation every 6 (six) inhalerIndications: hours as needed Bronchitis for Wheezing or Shortness of Breath. mupirocin 2 % Apply to 22 g 0 10/13/2018 Active ointmentIndications area(s) 2 (two) : Diabetic ulcer of times daily. toe of right foot associated with type 2 diabetes mellitus, limited to breakdown of skin dutasteride 0.5 mg TAKE 1 CAPSULE 90 capsule 0 01/17/2019 Active capsuleIndications: BY MOUTH EVERY Benign prostatic DAY hyperplasia without lower urinary tract symptoms METFORMIN 500 mg TAKE 2 TABLETS 360 tablet 0 02/14/2019 Active tablet BY MOUTH TWICE A DAY METFORMIN 500 mg TAKE 2 TABLETS 360 tablet 0 11/12/2018 Discontinued tablet BY MOUTH TWICE 9 A DAY documented as of this encounter (statuses as of 02/14/2019) Active Problems Problem Noted Date Obesity (BMI 30-39.9) 12/31/2016 Type 2 diabetes mellitus without complication 08/28/2015 Hypercholesterolemia 08/28/2015 Essential hypertension 08/28/2015 Coronary artery disease 08/28/2015 Benign prostatic hyperplasia 08/28/2015 Glaucoma of both eyes 08/28/2015 documented as of this encounter (statuses as of 02/14/2019) Immunizations Name Administration Dates Next Due Influenza Virus Vaccine 02/06/2018, 02/06/2017 documented as of this encounter Social History Tobacco Use Types Packs/Day Years Used Date Former Smoker Cigarettes Quit: 08/27/2008 Smokeless Tobacco: Never Used Alcohol Use Drinks/Week oz/Week Comments No 0 Standard drinks or equivalent 0.0 Sex Assigned at Date Recorded Not on file Job Start Date Occupation Industry Not on file Not on file Not on file Travel History Travel Start Travel End No recent travel history available. documented as of this encounter Last Filed Vital Signs Not on filedocumented in this encounter Plan of Treatment Health Maintenance Due Date Last Done Comments HEPATITIS C (HCV) SCREEN 1950 EYE EXAM 1962 DTaP,Tdap,and Td Vaccines (1 - 1971 Tdap) COLONOSCOPY 2002 Zoster Recombinant Vaccine 2002 (SHINGRIX) (1 of 2) LUNG CANCER SCREEN: Recommended 2007 for age 55-80 with 30 + pack year history Medicare Wellness Visit 2017 PNEUMOCOCCAL VACCINES 65+ (1 of 2 2017 - PCV13) FOOT EXAM 01/29/2019 01/29/2018, 01/29/2018 INFLUENZA VACCINE (#1) 2019 02/06/2018, 02/06/2017 HgA1C 02/25/2019 08/25/2018, 07/29/2017, 02/24/2017, Additional history exists CREATININE (SERUM) 08/26/2019 08/25/2018, 07/29/2017, 12/29/2016, Additional history exists LDL-C 08/26/2019 08/25/2018, 07/29/2017, 07/15/2016, Additional history exists URINE MICROALBUMIN 08/26/2019 08/25/2018, 07/29/2017, 07/15/2016, Additional history exists documented as of this encounter Results Not on filedocumented in this encounter Insurance Payer Benefit Plan / Group Subscriber ID Effective Dates Phone Address Type CIGSCOTT REVELES II [id number] 2005-Present HMO/PPO/POS documented as of this encounter
--- OUTSIDE RECORDS SUMMARY | 2019-02-18 06:38 | XMS REPORT | Summary of Care ---
:1950 Author Organization [facility] Address [address] [place] [address] Care Team Providers Name Role Phone Rick Deras MD Primary Care Provider Reason for Visit Reason Comments Refill Request Encounter Details Date Type Department Care Team Description 01/17/2019 Telephone [facility] Family Rick Deras, Refill Request Medicine - Alexander MICHAEL [address] [place] [address] [place] [address] [place] [phone] Allergies No Known Allergiesdocumented as of this encounter (statuses as of 01/17/2019) Medications Medication Sig Dispensed Refills Start Date [...] diabetes mellitus, limited to breakdown of skin METFORMIN 500 mg TAKE 2 TABLETS 360 tablet 0 11/12/2018 Active tablet BY MOUTH TWICE A DAY dutasteride 0.5 mg TAKE 1 CAPSULE 90 capsule 0 01/17/2019 Active capsuleIndications: BY MOUTH EVERY Benign prostatic DAY hyperplasia without lower urinary tract symptoms DUTASTERIDE 0.5 mg TAKE 1 CAPSULE 90 capsule 0 10/18/2018 Discontinued capsule BY MOUTH EVERY 9 DAY documented as of this encounter (statuses as of 01/17/2019) Active Problems Problem Noted Date Obesity (BMI 30-39.9) 12/31/2016 Type 2 diabetes mellitus without complication 08/28/2015 Hypercholesterolemia 08/28/2015 Essential hypertension 08/28/2015 Coronary artery disease 08/28/2015 Benign prostatic hyperplasia 08/28/2015 Glaucoma of both eyes 08/28/2015 documented as of this encounter (statuses as of 01/17/2019) Immunizations Name Administration Dates Next Due Influenza [...] FOOT EXAM 01/29/2019 01/29/2018, 01/29/2018 INFLUENZA VACCINE 02/06/2019 02/06/2018, 02/06/2017 HgA1C 02/25/2019 08/25/2018, 07/29/2017, 02/24/2017, Additional history exists CREATININE (SERUM) 08/26/2019 08/25/2018, 07/29/2017, 12/29/2016, Additional history exists LDL-C 08/26/2019 08/25/2018, 07/29/2017, 07/15/2016, Additional history exists URINE MICROALBUMIN 08/26/2019 08/25/2018, 07/29/2017, 07/15/2016, Additional history exists documented as of this encounter Results Not on filedocumented in this encounter Visit Diagnoses Diagnosis Benign prostatic hyperplasia without lower urinary tract symptoms - Primary documented in this encounter Insurance Payer Benefit Plan / Group Subscriber ID Effective Dates Phone Address Type ABDIRIZAK REVELES II [id number] 2005-Present HMO/PPO/POS documented as of this encounter
[2019-02-18] MEDS ORDERED: PROPOFOL 200 MG/20 ML VIAL IV ONE (06:48)
[2019-02-18] MEDS ORDERED: FENTANYL CITR 100 MCG/2 ML ONE (06:48)
[2019-02-18] MEDS ORDERED: LIDOCAINE 1% MPF 5 ML VIAL ONE (06:48)
[2019-02-18] MEDS ORDERED: MIDAZOLAM HCL 2 MG/2 ML INJ ONE (06:48)
[2019-02-18] MEDS ORDERED: ROCURONIUM 50 MG/5 ML VIAL IV ONE (06:49)
[2019-02-18] MEDS ORDERED: ONDANSETRON 4 MG/2 ML VIAL ONE (06:49)
[2019-02-18] MEDS ORDERED: NA CHLORIDE 0.9% 1,000 ML ONE (06:50)
[2019-02-18] MEDS ORDERED: OXYMETAZOLINE HCL 0.05% 15ML NAS ONE (07:01)
[2019-02-18] MEDS ORDERED: EPINEPHRINE/PF 1 MG/ML AMP ONE (07:01)
[2019-02-18] MEDS ORDERED: LIDOCAINE 1% W/EPI 1:100,000 MDV 20 ML VIAL ONE (07:24)
[2019-02-18] MEDS ORDERED: Phenylephrine HCl 10 MG/ML 1 ML VIAL ONE (07:46)
[2019-02-18] MEDS ORDERED: NS 0.9% VIAL 30 ML ONE (07:46)
[2019-02-18] MEDS ORDERED: GLYCOPYRROLATE 0.2 MG/ML SYR ONE (08:09)
[2019-02-18] MEDS ORDERED: NEOSTIGMINE 1 MG/ML -10 ML VIAL ONE (08:10)
[2019-02-18] MEDS ORDERED: MEPERIDINE HCL 25 MG/0.5 ML ONE (08:36)
--- NOTE | 2019-02-18 08:44 | P.BOP ---
Preoperative diagnosis: left TVF lesion Postoperative diagnosis: same Primary procedure: DL with bx and telescope Load Builder: NONE,NONE Estimated blood loss: <5ml Specimen: L TVF lesion, permanent Anesthesia: General Complications: None Implants: none Fluids & blood products: 800ml crystalloid Transferred to: Recovery Room Condition: Good
[2019-02-18] MEDS ORDERED: HYDROCOD 2.5mg-ACETAMIN 108mg/5mL Soln ONE (09:22)
[2019-02-18 11:25] VITALS: BP 167/91; TEMP 97.1; O2SAT 100
[2019-02-18] MEDS ORDERED: LIDOCAINE 2% INJ, MPF 2 ML 0 ML ONE (12:05)
[2019-02-18] MEDS ORDERED: BALANCED SALT IRRIG PLAIN 500 ML BTL IRR ONE (12:11)
--- NOTE | 2019-02-18 18:12 | OP ---
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 Procedure: Direct laryngoscopy with biopsy and use of telescope. Indication For Procedure: Mr. Scanlon presented with hoarseness to the clinic and was noted to have s ome right vocal fold weakness. He underwent a CT scan, which was unremarkable for etiology of right vocal cord weakness, but on re-evaluation with flexible laryngoscopy was noted to have an anterior ro und, red, inflammatory appearing lesion of the anterior commissure. Due to history of tobacco use, b iopsy was recommended. The risks, benefits, and alternatives were discussed with the patient who agr eed to proceed. Description Of Procedure: The patient was brought to the operating room. He was placed under genera l anesthesia via oral endotracheal tube. A shoulder roll was placed. The neck was extended. A whit e rubber tooth guard was placed on the upper dentition and a Kirsty-Berci laryngoscope was used to pe rform a direct laryngoscopy. There was a small laceration on the right posterior pharyngeal wall wit h small amount of blood, likely intubation injury. The vallecula and epiglottis were unremarkable. The tonsils and hypopharynx were unremarkable. The Kirsty-Berci was then placed for visualization of the vocal cords and placed into suspension. The posterior and mid aspect of the cords were well vis ualized, but the anterior portion was difficult despite direct pressure onto the larynx. A 5 mm 30 d egree rigid scope was used for better visualization and the lesion was identified. After several att empts at repositioning, the vocal cord lesion was well visualized using the 15 degree rigid scope via the Kirsty-Berci laryngoscope, and photo documentation was obtained. An upbiting large cup forceps was used to grasp and remove the lesion in its entirety. The lesion was sent to pathology as a perma nent section labeled left true vocal fold lesion. A cotton pledget soaked with epinephrine was appli ed to the biopsy site for several minutes and then removed. The site appeared to be hemostatic. The laryngoscope was then carefully removed. The mouth guard was removed and the lips, teeth, and tongu e were inspected. There was no evidence of any injury, laceration, or chipping. The patient was the n returned to care of anesthesia for awakening and extubation in the operating room, which proceeded without difficulty. Complications: None but difficult exposure for the lesion compared to more routine cases. Disposition: The patient will be discharged home later today in the care of his family and follow up with Dr. Aguirre for further evaluation. MARIA A/TRI Voice ID: [id number] Report ID: [id number]
== END 2019-02-18 10:15 | disposition home or self-care (01) ==
LOC: OR 06:29
PROVIDERS: ATTEND Otolaryngology
PROC: 0CBV8ZX Excision of Left Vocal Cord, Via Natural or Artificial Opening Endoscopic, Diagnostic (ICD-10-PCS; principal; 2019-02-18 07:30)
DX: J38.1 Polyp of vocal cord and larynx (principal); J38.2 Nodules of vocal cords; R49.0 Dysphonia; E11.9 Type 2 diabetes mellitus without complications; I10 Essential (primary) hypertension; I25.10 Atherosclerotic heart disease of native coronary artery without angina pectoris; N40.0 Benign prostatic hyperplasia without lower urinary tract symptoms; Z87.891 Personal history of nicotine dependence; Z95.1 Presence of aortocoronary bypass graft; Z83.3 Family history of diabetes mellitus
CPT/HCPCS: 82962 ×2; 88305; 31536; J2704; J2710; J0171; J2370; J2250; J3010; J2175; J7030; J2405; J3490